=== PATIENT | male | born 1940 | race Caucasian/White ===

== ENCOUNTER 2017-11-07 09:50 | Outpatient (REF) | payer MEDICARE, OTHER, SELFPAY ==
[2017-11-07 12:31] LABS: HCT 48.3 % (40.0-50.0); HGB 16.2 g/dL (13.5-17.5); Mean Corp. HGB Concentration 33.5 g/dL (32.0-36.0); Mean Corpuscular Hemoglobin 30.5 pg (27.0-33.0); Mean Corpuscular Volume 90.8 fL (80-95); Mean Platelet Volume 12.5 fL (8.0-11.0); Platelet Count 111 x1000/uL (130-400); RBC 5.32 m/cumm (4.50-6.00); RBC Distribution Width 16.3 % (11.8-14.1)
[2017-11-07 13:07] LABS: ALT 50 U/L (12-78); AST 38 U/L (15-37); Albumin 3.8 g/dL (3.4-5.0); Alkaline Phosphatase 104 U/L (46-116); Anion Gap 7.2 mmol/L (3-11); BUN 20 mg/dL (7-18); Bilirubin, Total 0.6 mg/dL (0.2-1.0); CO2 27.8 mmol/L (21.0-32.0); CREATININE 1.12 mg/dL (0.70-1.30); Calcium 8.8 mg/dL (8.5-10.1); Chloride 108 mmol/L (98-107); Cholesterol 147 mg/dL (50-200); Glucose 99 mg/dL (70-100); HDL Cholesterol 45 mg/dL (40-60); LDL CHOLESTEROL 89 mg/dL (<100); Potassium 4.5 mmol/L (3.5-5.1); Sodium 143 mmol/L (136-145); Total Protein 6.6 g/dL (6.4-8.2); Triglyceride 76 mg/dL (30-150)
[2017-11-08 10:38] LABS: PSA, Screening 1.7 ng/ml (0-6.5)
== END 2017-11-07 10:10 ==
LOC: NCHCN 09:50
PROVIDERS: Visit Provider Family Medicine
DX: I10 Essential (primary) hypertension (principal); E78.5 Hyperlipidemia, unspecified; Z12.5 Encounter for screening for malignant neoplasm of prostate
CPT/HCPCS: 80053; 80061; 83721; 84153; 85027

== ENCOUNTER → 2019-01-19 13:25 | Outpatient (BNVA) | payer MEDICARE, OTHER, SELFPAY | PROVIDERS: PCP Family Medicine; Visit Provider Internal Medicine Cardiovascular Disease | DX: I48.20 Chronic atrial fibrillation, unspecified (principal); I10 Essential (primary) hypertension | CPT/HCPCS: 99204; 99215 ==

== ENCOUNTER 2019-06-24 11:56 | Outpatient (CLI) | payer MEDICARE, OTHER, SELFPAY ==
--- NOTE | 2019-06-24 11:00 | DI.RAD_ITS ---
EXAM: XR SHOULDER LT COMPLETE 2+V CLINICAL HISTORY: L shoulder injury TECHNIQUE: COMPARISON: No exams were available for comparison FINDINGS: Two views were obtained. There are moderate hypertrophic degenerative changes at the acromioclavicul ar joint. Mild marginal osteophyte formation humeral head and glenoid noted with mild narrowing of c artilaginous joint space of glenohumeral joint. IMPRESSION: Degenerative changes as described above. No other specific abnormality.
== END 2019-06-24 12:16 ==
PROVIDERS: PCP Family Medicine; Referring Provider Family Medicine; Visit Provider Orthopaedic Surgery
DX: M25.512 Pain in left shoulder (principal); S49.92XA Unspecified injury of left shoulder and upper arm, initial encounter; M19.012 Primary osteoarthritis, left shoulder; M75.82 Other shoulder lesions, left shoulder; I10 Essential (primary) hypertension
CPT/HCPCS: 20610; 99203; 99214; 73030; J1040

== ENCOUNTER 2019-08-12 12:14 | Outpatient (REF) | payer MEDICARE, OTHER, SELFPAY ==
[2019-08-12 22:03] LABS: HCT 45.1 % (40.0-50.0); HGB 15.3 g/dL (13.5-17.5); Mean Corp. HGB Concentration 33.9 g/dL (32.0-36.0); Mean Corpuscular Hemoglobin 29.9 pg (27.0-33.0); Mean Corpuscular Volume 88.3 fL (80-95); Mean Platelet Volume 12.8 fL (8.0-11.0); Platelet Count 101 x1000/uL (130-400); RBC 5.11 m/cumm (4.50-6.00); RBC Distribution Width 15.8 % (11.8-14.1); White Blood Cell Count 4.06 k/cumm (4.4-10.8)
[2019-08-12 22:26] LABS: Anion Gap 9.1 mmol/L (3-11); BUN 20 mg/dL (7-18); CO2 26.9 mmol/L (21.0-32.0); CREATININE 1.06 mg/dL (0.70-1.30); Calcium 9.3 mg/dL (8.5-10.1); Calculated LDL 88 mg/dL (<100); Chloride 106 mmol/L (98-107); Cholesterol 149 mg/dL (<200); Glucose 91 mg/dL (74-106); HDL Cholesterol 47 mg/dL (40-60); Potassium 4.2 mmol/L (3.5-5.1); Sodium 142 mmol/L (136-145); Triglyceride 71 mg/dL (<150)
== END 2019-08-12 12:34 ==
LOC: NCHCN 12:14
PROVIDERS: PCP Family Medicine
DX: I10 Essential (primary) hypertension (principal); I48.91 Unspecified atrial fibrillation; R42 Dizziness and giddiness; Z98.890 Other specified postprocedural states
CPT/HCPCS: 80048; 80061; 85027

== ENCOUNTER → 2020-01-22 08:50 | Outpatient (BNVA) | payer MEDICARE, OTHER, SELFPAY | PROVIDERS: PCP Family Medicine; Referring Provider Family Medicine; Visit Provider Internal Medicine Cardiovascular Disease | DX: I48.20 Chronic atrial fibrillation, unspecified (principal); I25.10 Atherosclerotic heart disease of native coronary artery without angina pectoris; I10 Essential (primary) hypertension; Z95.5 Presence of coronary angioplasty implant and graft | CPT/HCPCS: 99214 ==

== ENCOUNTER 2020-07-12 15:06 | Outpatient (REF) | payer MEDICARE, OTHER, SELFPAY ==
[2020-07-12 16:16] LABS: Bilirubin Negative (Negative); Blood Trace-lysed (Negative); Clarity Clear (Clear); Glucose Negative (Negative); Ketones Negative (Negative); Leukocyte Esterase Small (Negative); Nitrite Negative (Negative); Urobilinogen 0.2 EU/dL (Up TO 0.2)
[2020-07-12 16:18] LABS: Abs Immature Grans 0.03 10^3/uL (0.0-0.06); Absolute Basophil Count 0.01 10^3/uL (0.0-0.2); Absolute Eosinophil Count 0.07 10^3/uL (0.0-0.7); Absolute Lymphocyte Count 1.44 10^3/uL (1.2-3.4); Absolute Monocyte Count 0.71 10^3/uL (0.1-0.8); Basophils % 0.2; Eosinophils % 1.4; HCT 45.5 % (40.0-50.0); HGB 15.5 g/dL (13.5-17.5); Immature Grans % 0.6; MCH 29.2 pg (27.0-33.0); MCHC 34.1 % (32.0-36.0); MCV 85.7 fL (80-95); MPV 12.7 fL (8.0-11.0); Monocytes % 14.3; Neutrophils % 54.5; Nucleated RBC 0 %; Platelet Count 101 10^3/uL (130-400); RBC 5.31 10^6/uL (4.36-5.78); RDW 15.2 % (11.8-14.1); RDW-SD 47.9 fL; WBC 4.96 10^3/uL (4.4-10.8)
[2020-07-12 16:21] LABS: ALT 32 U/L (16-63); AST 32 U/L (15-37); Albumin 3.8 g/dL (3.4-5.0); Alkaline Phosphatase 115 U/L (46-116); Anion Gap 7.7 mmol/L (3-11); BUN 19 mg/dL (7-18); Bilirubin, Total 0.8 mg/dL (0.2-1.0); CO2 29.3 mmol/L (21.0-32.0); Calcium 9.2 mg/dL (8.5-10.1); Chloride 105 mmol/L (98-107); Glucose 97 mg/dL (74-106); Potassium 4.3 mmol/L (3.5-5.1); Sodium 142 mmol/L (136-145); Total Protein 6.6 g/dL (6.4-8.2)
[2020-07-12 16:26] LABS: Epithelial Cells Rare HPF (Negative); RBC 0-2 HPF (0-2)
[2020-07-12 16:27] LABS: Bacteria Negative HPF (Negative); C & S Indicated? Yes; Casts Negative LPF (Negative); Crystals Negative HPF (Negative); Mucus Negative (Negative); Other Cells Negative (Negative)
== END 2020-07-12 15:07 | disposition home or self-care (01) ==
LOC: NCHCN 15:06
PROVIDERS: PCP Family Medicine; Visit Provider Family Medicine
DX: R10.9 Unspecified abdominal pain (principal); R82.998 Other abnormal findings in urine
CPT/HCPCS: 80053; 81003; 81015; 85025; 87086

== ENCOUNTER 2020-07-14 01:25 | Outpatient (CLI) | payer MEDICARE, OTHER, SELFPAY ==
--- NOTE | 2020-07-14 | DI.CT_ITS ---
Exam(s) CT ABDOMEN PELVIS W EXAM: CT ABDOMEN PELVIS W CLINICAL HISTORY: ACUTE ABD PAIN, R10.9 TECHNIQUE: Imaging Protocol: Axial computed tomography images with coronal and sagittal reformatted images were created and reviewed CONTRAST MATERIAL: Intravenous: Omnipaque 350 Contrast volume:100 mL Oral: No COMPARISON: No exams were available for comparison FINDINGS: The examination is limited due to patient motion artifact. ABDOMEN: Lung Bases: There is atelectasis or scarring in the lung bases. Liver: Normal density. No measurable mass. Portal, Superior Mesenteric, and Splenic Veins: Unremarkable. Gallbladder and Biliary Tract: No radiodense calculus or dilation. Pancreas: Normal density, no abnormal calcifications or inflammatory process. Spleen: Normal. Adrenals: No masses seen. Kidneys: Normal size, contour and axis. No radiodense stones or obstructive uropathy. Bilateral simpl e renal cysts. No follow-up is recommended. Abdominal Aorta: Abdominal portion non-dilated. Marked atherosclerosis. Bowel: No obstruction or bowel wall thickening. Appendix is unremarkable. Sigmoid diverticulosis, but no evidence of acute diverticulitis. Small hiatal hernia. Peritoneal Cavity: No ascites, collection or mesenteric inflammatory response. No free air. Lymph Nodes: Unremarkable. Bones: Multilevel degenerative changes in the lumbar spine. Soft Tissues: Unremarkable. PELVIS: Bladder: Symmetric distention, no gross wall thickening. Reproductive Organs: There is an enlarged prostate gland. Lymph Nodes: Within normal limits. Bones: Degenerative changes are present. IMPRESSION: 1. No acute abdominal or pelvic process. 2. Sigmoid diverticulosis but no evidence of acute diverticulitis. 3. Moderately severe degenerative changes in the lumbar spine. 4. Bilateral simple renal cysts. No follow-up is recommended. RADIATION DOSE DELIVERED: 1,030.5mGy.cm Total DLP DATA REPOSITORY: All CT scans at this facility are submitted to the National Radiology Data Registry (NRDR) Dose Index Registry (DIR) with the [employer] (ACR). RADIATION OPTIMIZATION: All CT scans at this facility use at least one of these dose optimization te chniques: automated exposure control; mA and/or kV adjustment per patient size (includes targeted exa ms where dose is matched to clinical indication); or iterative reconstruction.
[2020-07-14] MEDS: Omnipaque 350 MG/ML 100 ML BTL IJ (15:00)
[2020-07-14] MEDS: Normal Saline - Diluent 50 ML VIAL IV (15:01)
== END 2020-07-14 01:45 ==
PROVIDERS: PCP Family Medicine; Visit Provider Family Medicine
DX: R10.9 Unspecified abdominal pain (principal); K57.30 Diverticulosis of large intestine without perforation or abscess without bleeding; N28.1 Cyst of kidney, acquired
CPT/HCPCS: 74177; J3490

== ENCOUNTER 2020-10-16 11:24 | Emergency (ER) | payer MEDICARE, OTHER, SELFPAY ==
[2020-10-16 11:32] VITALS: BP 156/76; PULSE 99; RESP 16; TEMP 36.5; O2SAT 99
--- NOTE | 2020-10-16 12:13 | W.ED.GENAD ---
Discharge Plan Disposition Patient Disposition: HOME Condition: Stable Discharge Details Clinical Impression: URI (upper respiratory infection) Primary Care Provider: Siria Garcia ED Provider: Fer Hawkins Home Meds and New Rx's Prescriptions: Continued aspirin 81 mg tablet,delayed release (DR/EC) 81 mg PO DAILY RF: 0 metoprolol succinate 50 MG tablet extended release 24 hr 75 mg PO DAILY Qty: 45 RF: 11 lisinopril 10 MG tablet 10 mg PO DAILY Qty: 30 RF: 11 atorvastatin 80 MG tablet 80 mg PO HS RF: 0 allopurinol 300 mg tablet 300 mg PO DAILY RF: 0 warfarin 5 MG tablet 5 mg PO DIRECTED RF: 0 naproxen sodium [Aleve] 220 MG tablet 1 tab PO PRN PRNRF: 0 nitroglycerin 0.4 MG tablet, sublingual 0.4 mg PO PRN PRNRF: 0 Discharge Instructions Instructions: Upper Respiratory Infection (ED) Additional Instructions: Covid swab is pending, results likely factor the next 24-72 hours. In the meantime I do recommend quarantining until the test has resulted, you will need to quarantine longer if the test is positive. In the meantime tqjw-gcf-[id number] medications as directed for symptomatic control. Please watch for new or worsening symptoms and return to the ER for any concerns. Lastly, contact your primary care provider on Saturday to discuss your ER visit need for outpatient reevaluation. Stand Alone Forms: POSITIVE COVID-19/TO BE TESTED Discharge Data Discharge Date/Time-TO BE ENTERED AT DEPARTURE: 10/16/20 12:20 Medical Decision Making 80-year-old gentleman presents with mild URI-like symptoms, has similar symptoms, her Covid test is pending. He is requesting a Covid test now. He is otherwise without concern or complaint. He appears well, nontoxic, lungs are clear to auscultation, O2 sats are 99% on room air. Extremely low suspicion for pneumonia. Posterior pharynx without erythema, edema, exudates. Extremely low suspicion for acute strep pharyngitis. Will obtain Covid swab, send out. Discussed results are typically back in the next 24-72 hours. We discussed quarantining until his results come back as his symptoms are consistent with Covid. He was encouraged to return to the ER for new or worsening symptoms otherwise he will contact his primary care provider on Saturday to discuss his ongoing symptoms and need for outpatient reevaluation. Standard discharge and return precautions provided This documentation was generated using [employer] dictation system, please disregard any oddities of phrase or misspellings. Medical Records Medical records reviewed: Yes I reviewed the patient's medical records. HPI General Mode of arrival: ambulatory. Date/Time Provider Initiated Documentation: 10/16/20 11:25. Limitations to Documentation: no limitations. Information obtained by: patient and family. HPI Narrative: This is a 80-year-old gentleman, past medical history of ASCVD, A. fib, chronic anticoagulation, hypertension, presenting to the ER requesting a Covid swab. Patient states that earlier in the week his developed URI-like symptoms, was tested for Covid but her test is still pending. He states over the past 24 hours he has noticed a slightly runny nose, scratchy throat, and a mild dry cough. He has not taken any [id number] medications for his symptoms. He denies recent travel. He is vaccinated against Covid. He denies headache, fever, chest pain, shortness of breath, productive cough, abdominal pain, nausea, vomiting, change in bowel or bladder function, skin rash. Related Data Home Medications Medication Instructions Recorded Confirmed warfarin 5 mg PO DIRECTED 02/15/15 10/16/20 naproxen sodium [Aleve] 1 tab PO PRN PRN 03/03/15 10/16/20 nitroglycerin 0.4 mg PO PRN PRN 10/09/15 10/16/20 lisinopril 10 mg PO DAILY #30 tab-cap 12/21/15 10/16/20 metoprolol succinate 75 mg PO DAILY #45 tab-cap 12/21/15 10/16/20 atorvastatin 80 mg PO HS 05/15/17 10/16/20 allopurinol 300 mg tablet 300 mg PO DAILY 01/19/19 01/22/20 aspirin 81 mg tablet,delayed 81 mg PO DAILY 01/19/19 10/16/20 release Allergies Allergy/AdvReac Type Severity Reaction Status Date / Time No Known Allergies Allergy Unverified 10/16/20 11:37 General Stated Complaint: RespSymp MARISSA: 4 Review of Systems Constitutional Constitutional: Denies fatigue, Denies fever(s) and Denies headache(s) ENT Ears, Nose, Mouth, and Throat: Denies headache(s), Denies neck pain and Reports sore throat Cardiovascular Cardiovascular: Denies chest pain and Denies dyspnea Respiratory Respiratory: Reports cough and Denies dyspnea Gastrointestinal Gastrointestinal: Denies abdominal pain, Denies nausea and Denies vomiting Genitourinary Genitourinary: Denies dysuria Musculoskeletal Musculoskeletal: Denies back pain and Denies neck pain Integumentary/Breasts Skin/Breast: Denies rash Neurologic Neurologic: Denies headache(s) Endocrine Endocrine: Denies fatigue Hematologic/Lymphatic Hematologic/Lymphatic: Reports easy bleeding and Reports easy bruising [facility] Medical History ASCVD (arteriosclerotic cardiovascular disease) Atherosclerosis of leg with intermittent claudication Chronic atrial fibrillation Colon adenoma Gout Hyperlipidemia Hypertension NSTEMI (non-ST elevated myocardial infarction) Stenosis of left carotid artery Surgical History History of heart artery stent (~08/2015) RCA stented. Social History Smoking/Tobacco Use Status: Former Tobacco Use Smoking risk assessment performed?: Yes Alcohol Intake: current Alcohol Intake frequency: 0-2 drinks per day Drug use: Never Substance use type: does not use Current gender identity: male What type of physical activity do you participate in: aerobic Duration: 30-45 minutes/day Frequency: other Details: daily aerobic exercise of either biking, cross country skiing, or treadmill Do you feel safe in your relationship?: Yes Exam Const General: cooperative, healthy appearing, comfortable and no acute distress Orientation: alert and awake [facility] Head: normal to inspection, normocephalic and atraumatic Ears: external ears normal, TM's normal bilaterally and EAC's normal General nose exam: external nose normal Face and sinus: normal facial exam Mouth: moist mucous membranes Throat: posterior oropharynx normal Eyes General: appearance normal, both eyes and all related structures Conjunctivae: conjunctivae normal Neck Neck: normal visual inspection, full ROM, no lymphadenopathy, no meningeal signs, trachea midline, supple and nontender Resp Effort & Inspection: normal respiratory effort and able to speak in complete sentences Auscultation: clear to auscultation bilaterally Cardio Rate: regular rate Rhythm: abnormal rhythm irregularly irregular GI Palpation: soft and nontender Skin General skin exam: no rashes or lesions noted Neuro General: patient alert, patient awake, moves all extremities and no focal motor deficits Sensory Exam: no sensory deficits noted Psych Appearance: grossly normal Mental Status: mental status grossly normal Course Vital Signs Vital signs: Vital Signs Temperature 36.5 C 10/16/20 11:32 Pulse 99 H 10/16/20 11:32 Respiratory Rate 16 10/16/20 11:32 Blood Pressure 156/76 H 10/16/20 11:32 Pulse Oximetry 99 10/16/20 11:32 Temperature 36.5 C 10/16/20 11:32 Temperature Source Skin 10/16/20 11:32 Pulse 99 H 10/16/20 11:32 Respiratory Rate 16 10/16/20 11:32 Respiratory Effort Non-Labored 10/16/20 11:41 Respiratory Depth Normal 10/16/20 11:41 Blood Pressure 156/76 H 10/16/20 11:32 Blood Pressure Position Sitting 10/16/20 11:32 Pulse Oximetry 99 10/16/20 11:32 Oxygen Delivery Method Room Air 10/16/20 11:32 Oxygen Flow Rate 0 10/16/20 11:32 Pain Level 0 10/16/20 11:32
[2020-10-19 15:35] LABS: COVID-19 RT-PCR UVMMC Result Negative (Negative)
== END 2020-10-16 12:20 | disposition home or self-care (01) ==
PROVIDERS: Emergency Provider Physician Assistant; PCP Family Medicine
DX: J06.9 Acute upper respiratory infection, unspecified (principal); Z20.822 Contact with and (suspected) exposure to COVID-19
CPT/HCPCS: 99281; U0003

== ENCOUNTER 2020-12-23 11:15 | Emergency (ER) | payer MEDICARE, OTHER, SELFPAY ==
[2020-12-23 11:26] VITALS: BP 132/90; PULSE 95; RESP 18; TEMP 36.7; O2SAT 98
--- NOTE | 2020-12-23 12:27 | DI.CT_ITS ---
Exam(s) CT HEAD CERVICAL SPINE WO EXAM: CT HEAD CERVICAL SPINE WO COMPARISON: CT TEMPORAL BONE WITH CONTRAST from 02/03/2017 FINDINGS: CT examination of the cervical spine was performed without contrast administration. There are moderate degenerative changes of the cervical spine. There is no evidence of acute cervical spine fracture or dislocation. Intervertebral disc spaces are well maintained. Tracheolaryngeal structures appear intact. No cervical mass or adenopathy. Noncontrast cranial CT was performed. There is moderate generalized cerebral atrophy. No evidence of acute intracranial hemorrhage, mass effect, or midline shift. No calvarial fracture. The orbital and temporal bone structures appear intact. Visualized mastoid air cells and paranasal sinuses appear clear. IMPRESSION: No evidence of acute cervical spine injury. No evidence of acute intracranial injury. RADIATION DOSE DELIVERED: 1,616.47mGy.cm Total DLP 1,616.47mGy.cm Total DLP CTDIvol DATA REPOSITORY: All CT scans at this facility are submitted to the National Radiology Data Registry (NRDR) Dose Index Registry (DIR) with the [employer] (ACR). RADIATION OPTIMIZATION: All CT scans at this facility use at least one of these dose optimization te chniques: automated exposure control; mA and/or kV adjustment per patient size (includes targeted exa ms where dose is matched to clinical indication); or iterative reconstruction.
[2020-12-23 13:30] VITALS: BP 128/97; PULSE 91; RESP 18; O2SAT 98
[2020-12-23 14:05] LABS: Abs Immature Grans 0.02 10^3/uL (0.0-0.06); Absolute Basophil Count 0.02 10^3/uL (0.0-0.2); Absolute Eosinophil Count 0.14 10^3/uL (0.0-0.7); Absolute Lymphocyte Count 1.55 10^3/uL (1.2-3.4); Absolute Monocyte Count 0.88 10^3/uL (0.1-0.8); Absolute Neutrophil Count 3.19 10^3/uL (1.2-6.7); Basophils % 0.3; Eosinophils % 2.4; HCT 42.6 % (40.0-50.0); HGB 14.2 g/dL (13.5-17.5); Immature Grans % 0.3; Lymphocytes % 26.7; MCH 29.3 pg (27.0-33.0); MCHC 33.3 % (32.0-36.0); Monocytes % 15.2; Neutrophils % 55.1; Nucleated RBC 0 %; RBC 4.84 10^6/uL (4.36-5.78); RDW 15.4 % (11.8-14.1); RDW-SD 50.3 fL
[2020-12-23 14:20] LABS: Anion Gap 3.1 mmol/L (3-11); BUN 26 mg/dL (7-18); CO2 28.9 mmol/L (21.0-32.0); CREATININE 1.1 mg/dL (0.70-1.30); Calcium 9.2 mg/dL (8.5-10.1); Chloride 108 mmol/L (98-107); Glucose 97 mg/dL (74-106); Potassium 4.9 mmol/L (3.5-5.1); Sodium 140 mmol/L (136-145)
[2020-12-23 14:30] LABS: Burr Cells (echinocyte) 2+; Diff Comment Diff Reviewed; Platelet Count 90 10^3/uL (130-400)
[2020-12-23 15:41] LABS: INR 1.9 (0.9-1.1); Prothrombin Time 18.9 sec (9.3-11.0)
--- NOTE | 2020-12-23 15:41 | ED.GENADUL_ITS ---
Discharge Plan Disposition Patient Disposition: HOME Condition: Stable Discharge Details Clinical Impression: Fall, Hand laceration, Contusion, Abrasion Primary Care Provider: Siria Garcia ED Provider: Letha Nieto Home Meds and New Rx's Prescriptions: Continued aspirin 81 mg tablet,delayed release (DR/EC) 81 mg PO DAILY RF: 0 metoprolol succinate 50 MG tablet extended release 24 hr 75 mg PO DAILY Qty: 45 RF: 11 lisinopril 10 MG tablet 10 mg PO DAILY Qty: 30 RF: 11 atorvastatin 80 MG tablet 80 mg PO HS RF: 0 allopurinol 300 mg tablet 300 mg PO DAILY RF: 0 warfarin 5 MG tablet 5 mg PO DIRECTED RF: 0 naproxen sodium [Aleve] 220 MG tablet 1 tab PO PRN PRNRF: 0 nitroglycerin 0.4 MG tablet, sublingual 0.4 mg PO PRN PRNRF: 0 Discharge Instructions Instructions: Laceration (ED), Contusion in Adults (ED), Abrasion (ED) Additional Instructions: Please return immediately to the emergency department if you develop any new or worsening symptoms, if your condition does not improve as expected, or if you become otherwise concerned. It is extremely important that you call soon as possible to make an appointment to be seen in follow-up for this visit by your primary care doctor. You will need to have your stitches removed in 10 days. Referrals: Siria Garcia [Primary Care Provider] - Discharge Data Discharge Date/Time-TO BE ENTERED AT DEPARTURE: 12/23/20 15:49 Medical Decision Making Talon Diaz is an 80 y/o man with h/o CAD, HLD, HTN atrial fibrillation on coumadin who presented to the emergency department with left palmar laceration with continued slow bleeding after fall down 5-6 steps 1.5 hours ago. On exam Pt with superficial abrasion to right eyebrow, mild echymoses right lateral midshaft thigh with full painless ROM right knee and hip, 1.5 cm gill laceration with slow oozing, 0.5cm left palmar laceration bleeding controlled. Exam/hx not c/w hip fx, femur fx, other major trauma to the extremities, thorax/abdomen/spine/head, non-mechanical etiology of fall. Plan for laceration repair, screening labs given coumadin. Lacerations repaired, no further bleeding. Pt stated several times that he wished to be discharged and did not want to wait for labs results. Verbal report from lab, INR 1.9, other labs not resulted. I had a lengthy discussion with Patient regarding labs not yet resulted, Pt would need outpt f/u with PCP regarding lab values, possible life-threatening diagnosis could be missed if Pt elects to leave before all labs resulted. Pt agrees to outpt f/u for lab results, continues to wish to be discharged to home prior to results. I also discussed with Pt return to emergency department precautions, home care, and importance of outpatient follow-up. Pt verbalizes understanding of the plan and is amenable. Patient discharged to home with clear plan for outpatient follow-up. All questions were answered. Disposition decision was made weighing the risks and benefits of hospitalization versus outpatient treatment, the risk for further decompensation, and the patient's wishes. Medical Records Medical records reviewed: Yes I reviewed the patient's medical records. Lab Data Lab results reviewed: Yes I reviewed the patient's lab results. Labs: Laboratory Tests Range/Units 12/23/20 12/23/20 12/23/20 13:55 13:55 13:55 WBC (4.4-10.8) 10^3/uL 5.80 RBC (4.36-5.78) 10^6/uL 4.84 Hgb (13.5-17.5) g/dL 14.2 Hct (40.0-50.0) % 42.6 MCV (80-95) fL 88.0 MCH (27.0-33.0) pg 29.3 MCHC (32.0-36.0) % 33.3 RDW (11.8-14.1) % 15.4 H Plt Count (130-400) 10^3/uL 90 L MPV (8.0-11.0) fL Immature Gran % 0.3 Neutrophils % 55.1 Lymphocytes % 26.7 Monocytes % 15.2 Eosinophils % 2.4 Basophils % 0.3 Nucleated RBC % % 0 Absolute Neutrophils (1.2-6.7) 10^3/uL 3.19 Absolute Lymphocytes (1.2-3.4) 10^3/uL 1.55 Absolute Monocytes (0.1-0.8) 10^3/uL 0.88 H Absolute Eosinophils (0.0-0.7) 10^3/uL 0.14 Absolute Basophils (0.0-0.2) 10^3/uL 0.02 RBC Morphology See Below Yemi Cells/Echinocytes 2+ PT (9.3-11.0) sec 18.9 H INR (0.9-1.1) 1.9 H Sodium (136-145) mmol/L 140 Potassium (3.5-5.1) mmol/L 4.9 Chloride (98-107) mmol/L 108 H Carbon Dioxide (21.0-32.0) mmol/L 28.9 Anion Gap (3-11) mmol/L 3.1 BUN (7-18) mg/dL 26 H Creatinine (0.70-1.30) mg/dL 1.1 Estimated GFR/1.73 m2 (mL/min/1.73m2) >= 60.00 Glucose (74-106) mg/dL 97 Calcium (8.5-10.1) mg/dL 9.2 HPI General Mode of arrival: ambulatory . Date/Time Provider Initiated Documentation: 12/23/20 11:33 . Limitations to Documentation: no limitations . Information obtained by: patient and RN notes reviewed . HPI Narrative: Talon Diaz is an 80 y/o man with h/o CAD, HLD, HTN atrial fibrillation on coumadin presenting to the emergency department with chief complaint hand laceration. Pt reports that he was carrying a large box down the stairs when he lost his balance and fell down 5 or 6 steps. Pt reports that he hit his forehead on railing, and also hit his left hand and right thigh. Reports cut to left hand and reports scrape to right eyebrow. Denies LOC, states that he remembers event in it's entirety. No vomiting. Pt reports that he had no preceding symptoms, fall was mechanical due to loss of balance. He denies pain other than to his left hand at site of laceration and mild pain to right thigh. Denies headache or facial pain. Denies SOB, cough, palpitations, lightheadedness, numbness, weakness, diarrhea, rash, swelling. Previously in his usual state of health. Pt states that he presented to ED because cut on left hand has continued to ooze despite pressure. Denies other bleeding. Pt reports that he feels overall well and ready to go home other than oozing from hand wound. Related Data Home Medications Medication Instructions Recorded Confirmed warfarin 5 mg PO DIRECTED 02/15/15 12/23/20 naproxen sodium [Aleve] 1 tab PO PRN PRN 03/03/15 12/23/20 nitroglycerin 0.4 mg PO PRN PRN 10/09/15 12/23/20 lisinopril 10 mg PO DAILY #30 tab-cap 12/21/15 12/23/20 metoprolol succinate 75 mg PO DAILY #45 tab-cap 12/21/15 12/23/20 atorvastatin 80 mg PO HS 05/15/17 12/23/20 allopurinol 300 mg tablet 300 mg PO DAILY 01/19/19 12/23/20 aspirin 81 mg tablet,delayed 81 mg PO DAILY 01/19/19 12/23/20 release Allergies Allergy/AdvReac Type Severity Reaction Status Date / Time No Known Allergies Allergy Unverified 12/23/20 11:32 General Stated Complaint: Trauma MARISSA: 2 Review of Systems Narrative: Constitutional: denies fevers Eyes: denies eye pain, vision changes ENT: denies ear pain, dental pain, sore throat, facial pain Cardiovascular: denies chest pain Respiratory: denies SOB, cough GI: denies abdominal pain, vomiting, diarrhea : denies flank pain MSK: denies back pain, neck pain, arthralgias, reports right thigh myalgia Skin: denies rash, reports hand wound, abrasion to forehead Neuro: denies headaches, numbness, weakness, LOC PFSH Active Problem List (Updated 12/23/20 @ 15:43 by Letha Nieto MD) URI (upper respiratory infection) (Acute) Fall (Acute) Hand laceration (Acute) Contusion (Acute) Abrasion (Acute) Tendonitis of left rotator cuff (Acute) Chronic atrial fibrillation (Acute) Hypertension (Chronic) Speech abnormality (Acute) Medical History (Updated 12/23/20 @ 15:43 by Letha Nieto MD) ASCVD (arteriosclerotic cardiovascular disease) 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 Social History Smoking/Tobacco Use Status: Former Tobacco Use Smoking risk assessment performed?: Yes Alcohol Intake: current Alcohol Intake frequency: 0-2 drinks per day Drug use: Never Substance use type: does not use Current gender identity: male What type of physical activity do you participate in: aerobic Duration: 30-45 minutes/day Frequency: other Details: daily aerobic exercise of either biking, cross country skiing, or treadmill Do you feel safe in your relationship?: Yes Exam Narrative Exam Narrative: Constitutional: well and [id number]-[id number], pleasant, conversing normally HENT: foreahead with abrasion to right eyebrow, no bleeding, head/scalp otherwise atraumatic/normocephalic/normal inspection, mucous membranes moist, no intra-oral lesion Eyes: conjunctiva normal, sclera normal, pupils 3mm b/l Neck: no stridor, normal painless ROM, trachea midline, no cervical spine TTP Chest: normal inspection Resp: normal work of breathing, LCTAB Cardio: normal rate, normal rhythm, no murmur appreciated GI: abdomen soft, non-tender, non-distended Back: normal inspection, no rash Skin: warm, dry, normal color, no rash Neuro: alert, not altered, grossly non-focal, normal tone Ext: right lateral thigh with mild ecchymoses at midpoint, FROM right hip, no TTP right hip or knee, no anterior TTP of the right thigh, no deformity, DP pulses intact and symmetric, left palm with 1.5 cm laceration (oozing) and 0.5 cm laceration (no active bleeding) Psych: normal mood, normal affect, normal behavior Course Vital Signs Vital signs: Vital Signs Temperature 36.7 C 12/23/20 11:26 Pulse 95 H 12/23/20 11:26 Respiratory Rate 18 12/23/20 11:26 Blood Pressure 132/90 12/23/20 11:26 Pulse Oximetry 98 12/23/20 11:26 Temperature 36.7 C 12/23/20 11:26 Temperature Source Skin 12/23/20 11:26 Pulse 91 H 12/23/20 13:30 Respiratory Rate 18 12/23/20 13:30 Respiratory Effort 12/23/20 11:34 Respiratory Depth Normal 12/23/20 11:34 Respiratory Pattern Normal 12/23/20 11:34 Blood Pressure 128/97 H 12/23/20 13:30 Blood Pressure Position Sitting 12/23/20 11:26 Pulse Oximetry 98 12/23/20 13:30 Oxygen Delivery Method Room Air 12/23/20 13:30 Oxygen Flow Rate 0 12/23/20 13:30 Pain Level 2 12/23/20 11:26 Lab/Test Results Lab/Test Results: Laboratory Tests Range/Units 12/23/20 12/23/20 12/23/20 13:55 13:55 13:55 WBC (4.4-10.8) 10^3/uL 5.80 RBC (4.36-5.78) 10^6/uL 4.84 Hgb (13.5-17.5) g/dL 14.2 Hct (40.0-50.0) % 42.6 MCV (80-95) fL 88.0 MCH (27.0-33.0) pg 29.3 MCHC (32.0-36.0) % 33.3 RDW (11.8-14.1) % 15.4 H Plt Count (130-400) 10^3/uL 90 L MPV (8.0-11.0) fL Immature Gran % 0.3 Neutrophils % 55.1 Lymphocytes % 26.7 Monocytes % 15.2 Eosinophils % 2.4 Basophils % 0.3 Nucleated RBC % % 0 Absolute Neutrophils (1.2-6.7) 10^3/uL 3.19 Absolute Lymphocytes (1.2-3.4) 10^3/uL 1.55 Absolute Monocytes (0.1-0.8) 10^3/uL 0.88 H Absolute Eosinophils (0.0-0.7) 10^3/uL 0.14 Absolute Basophils (0.0-0.2) 10^3/uL 0.02 RBC Morphology See Below Yemi Cells/Echinocytes 2+ PT (9.3-11.0) sec 18.9 H INR (0.9-1.1) 1.9 H Sodium (136-145) mmol/L 140 Potassium (3.5-5.1) mmol/L 4.9 Chloride (98-107) mmol/L 108 H Carbon Dioxide (21.0-32.0) mmol/L 28.9 Anion Gap (3-11) mmol/L 3.1 BUN (7-18) mg/dL 26 H Creatinine (0.70-1.30) mg/dL 1.1 Estimated GFR/1.73 m2 (mL/min/1.73m2) >= 60.00 Glucose (74-106) mg/dL 97 Calcium (8.5-10.1) mg/dL 9.2 Procedures Laceration Laceration 1: Site: hand Side (If applicable): left Size (cm): 1.5 Description: linear Depth: simple, single layer Local Anesthetic: Lidocaine 1% Amount of anesthesia used (mL): 4 Pre-repair: wound explored, irrigated extensively and deep structures intact Skin layer closed with: nylon Size (cm): 4-0 Technique: simple, interrupted PAWSS Have you Been Recently Intoxicated or Drunk Within the Last 30 days?: No Have you Ever Experienced Previous Episodes of Alcohol Withdrawal?: No Have you ever Experienced Withdrawal Seizures?: No Have you ever Experienced Delirium Tremens(DT)s?: No Have you ever undergone Alcohol Rehabilitation Treatment (i.e, inpt ot outpatient treatment programs)?: No Have you ever Experienced Blackouts?: No Have you ever Combined Alcohol with other Downers within the last 90 days?: No Have you ever Combined Alcohol with any other Substance of Abuse during the last 90 days?: No Positive Blood Alcohol level on Presentation? [PCS.BAL]: No Evidence of Increased Autonomic Activity (i.e. HR>120, tremor, sweating, agitation, nausea)?: No Result: 0
== END 2020-12-23 15:49 | disposition home or self-care (01) ==
PROVIDERS: Emergency Provider Student in an Organized Health Care Education/Training Program; PCP Family Medicine
DX: S61.412A Laceration without foreign body of left hand, initial encounter (principal); S70.11XA Contusion of right thigh, initial encounter; S00.211A Abrasion of right eyelid and periocular area, initial encounter; W10.8XXA Fall (on) (from) other stairs and steps, initial encounter; Z79.01 Long term (current) use of anticoagulants
CPT/HCPCS: 12001; 80048; 90471; 99284; 70450; 72125; 85025; 85610; 99283

== ENCOUNTER 2021-01-06 10:32 | Outpatient (REF) | payer MEDICARE, OTHER, SELFPAY ==
[2021-01-06 15:25] LABS: Calculated LDL 75 mg/dL (<100); Cholesterol 135 mg/dL (<200); HDL Cholesterol 50 mg/dL (40-60); Triglyceride 53 mg/dL (<150)
== END 2021-01-06 10:33 | disposition home or self-care (01) ==
LOC: NCHCN 10:32
PROVIDERS: PCP Family Medicine; Visit Provider Family Medicine
DX: E78.5 Hyperlipidemia, unspecified (principal)
CPT/HCPCS: 80061

== ENCOUNTER 2021-01-26 07:57 | Inpatient (IN) | payer MEDICARE, OTHER, SELFPAY ==
[2021-01-26] VITALS (26 sets, daily range): BP systolic 71–172; BP diastolic 41–104; PULSE 67–95; RESP 13–25; TEMP 35.4–36.9; O2SAT 95–100
--- NOTE | 2021-01-26 08:00 | DI.RAD_ITS ---
Exam(s) XR RIBS LT W PA LAT CHEST EXAM: XR RIBS LT W PA LAT CHEST CLINICAL HISTORY: R/O Fracture. TECHNIQUE: 2D digital imaging was performed. COMPARISON: CR PORTABLE CHEST ONE VIEW from 08/30/2015 FINDINGS: Left rib cage: No obvious fractures. No osseous lesions. Chest x-ray: Heart size normal mediastinum is not widened. Lungs are clear. No infiltrates nor pleu ral effusions. No pneumothorax IMPRESSION: No acute pulmonary findings No left rib fracture seen DATA REPOSITORY: RADIATION DOSE DELIVERED:
--- NOTE | 2021-01-26 08:00 | DI.CT_ITS ---
Exam(s) CT HEAD WO EXAM: CT HEAD WO CLINICAL HISTORY: Fall, Head Injury R/O Bleed. TECHNIQUE: Imaging Protocol: Axial computed tomography images with coronal and sagittal reformatted images were created and reviewed COMPARISON: CT CT HEAD CERVICAL SPINE WO from 12/23/2020 FINDINGS: There are no skull fractures. There is complete opacification of the right maxillary sinus, not ass ociated with obvious fracture. Mild mucosal thickening noted in left maxillary sinus. Sphenoid sinu ses and frontal sinuses are clear, as are the ethmoidal air cells and mastoid air cells. There is no evidence of intracranial hemorrhage, mass effect, or shift of midline structures. There are no extra-axial fluid collections. The ventricles are not enlarged or shifted and there is no blo od within the ventricular system nor within the basal cisterns. IMPRESSION: No acute intracranial findings on this noninfused CT scan of the brain. However, there is complete opacification of the right maxillary sinus some mucosal thickening also no dawn left maxillary, these findings not evident on the prior CT exam of 12/23/2020. The amount of sof t tissue swelling over the right orbit has decreased from the prior study. RADIATION DOSE DELIVERED: 931.26mGy.cm Total DLP DATA REPOSITORY: All CT scans at this facility are submitted to the National Radiology Data Registry (NRDR) Dose Index Registry (DIR) with the [employer] (ACR). RADIATION OPTIMIZATION: All CT scans at this facility use at least one of these dose optimization te chniques: automated exposure control; mA and/or kV adjustment per patient size (includes targeted exa ms where dose is matched to clinical indication); or iterative reconstruction.
--- NOTE | 2021-01-26 08:10 | ED.GENADUL_ITS ---
Discharge Plan Disposition Patient Disposition: [facility] INPATIENT Condition: Stable Discharge Details Clinical Impression: Fall, Multiple fractures of ribs of left side Admit Date/Time: 01/26/21 12:35 Admit Provider: Jenn Castle Attending Provider: Jenn Castle Primary Care Provider: Siria Garcia ED Provider: Eva Clark Medical Decision Making 80-year-old male presents to the ER via EMS status post slip and fall in his driveway this morning. Patient reports that he was talking on the phone when he had a mechanical fall. He denies any loss of consciousness. He did hit the back of his left occipital scalp which has a skin tear. He also is complaining of some left-sided posterior upper rib pain. Pain is only present when he moves. Bleeding is controlled upon arrival. He does take warfarin he did take his normal daily a.m. medications. He denies any other signs or symptoms no chest pain no abdominal pain. No other signs of trauma. He is alert and oriented x4 XR RIBS LT W PA LAT CHEST EXAM: XR RIBS LT W PA LAT CHEST FINDINGS: Left rib cage: No obvious fractures. No osseous lesions. Chest x-ray: Heart size normal mediastinum is not widened. Lungs are clear. No infiltrates nor pleural effusions. No pneumothorax IMPRESSION: No acute pulmonary findings No left rib fracture seen EXAM: CT HEAD WO FINDINGS: There are no skull fractures. There is complete opacification of the right maxillary sinus, not associated with obvious fracture. Mild mucosal thickening noted in left maxillary sinus. Sphenoid sinuses and frontal sinuses are clear, as are the ethmoidal air cells and mastoid air cells. There is no evidence of intracranial hemorrhage, mass effect, or shift of midline structures. There are no extra-axial fluid collections. The ventricles are not enlarged or shifted and there is no blood within the ventricular system nor within the basal cisterns. IMPRESSION: No acute intracranial findings on this noninfused CT scan of the brain. However, there is complete opacification of the right maxillary sinus some mucosal thickening also noted left maxillary, these findings not evident on the prior CT exam of 12/23/2020. The amount of soft tissue swelling over the right orbit has decreased from the prior study. Attempted with discharge attempted to get patient up into the wheelchair. Patient had severe increase in left-sided chest pain to the point where he felt dizzy. Pain is only upon movement and with palpation to his left midclavicular line with palpation. CT chest ordered to rule out occult fracture or any int ernal abnormality. Oxycodone 5 mg p.o. ordered. FINDINGS: CHEST: LUNGS: No pulmonary contusion nor pleural effusion or pneumothorax. However, there are multiple acute appearing nondisplaced left-sided rib fractures involving the left to 5th, 6, 7th, 8th, 9th ribs, without evidence of ipsilateral scapular fracture. There is very mild pleural thickening over the area of fractures in the left lower lobe. No large pleural effusion. There are no rib fractures on the opposite-right side. No sternal fracture evident. No obvious acute clavicle fracture in the field of view obtained. Incidentally noted is an azygos accessory lobe on the opposite-right side-right lung. There are no vertebral fractures evident. MEDIASTINUM: No evidence of mediastinal hematoma. No incidental hilar nor me diastinal adenopathy. Visualized thyroid unremarkable.No obvious axillary adenopathy CARDIAC: Heart size is normal. There is no pericardial effusion.Caliber of the thoracic aorta is within normal limits. VISUALIZED UPPER ABDOMEN:No acute findings. OSSEOUS: As above. IMPRESSION: 1. There are nondisplaced fractures of the left 5th through 9th ribs, inclusive. There is some mild pleural thickening over this region but no prominent lung contusion or large pleural effusion and there is no pneumothorax. 2. No evidence of overlying ipsilateral left scapular fracture and no vertebral body fractures evident. No fractures in the opposite-right rib cage. 3. No mediastinal hematoma nor incidental intrathoracic adenopathy. 1140: Patient reevaluation and discussion of CT results. Incentive spirometer ordered. Attempted to get patient up into the wheelchair. Patient is complaining of 8-10 of pain with movement. Additional oxycodone 5 mg ordered p.o. I did contact the OR to inquire if they could do a rib block for the patient. Will consider admission if there is a contraindication to the rib block or if anesthesia is not available for pain control and observation. Spoke with [employer] DIRECTOR to request Rib block. 1211: Spoke with Dr. Castle regarding patient she recommends labs including a PT PTT and INR. She does agree to accept patient for admission she will call anesthesia and call me back patient may not be a candidate for a rib block due to being on Coumadin. Patient admitted to floor for trauma and observation. HPI General Mode of arrival: EMS . Date/Time Provider Initiated Documentation: 01/26/21 08:01 . Limitations to Documentation: no limitations . Information obtained by: patient, EMS and RN notes reviewed . HPI Narrative: 80-year-old male presents to the ER via EMS status post slip and fall in his driveway this morning. Patient reports that he was talking on the phone when he had a mechanical fall. He denies any loss of consciousness. He did hit the back of his left occipital scalp which has a skin tear. He also is complaining of some left-sided posterior upper rib pain. Pain is only present when he moves. Bleeding is controlled upon arrival. He does take warfarin he did take his normal daily a.m. medications. He denies any other signs or symptoms no chest pain no abdominal pain. No other signs of trauma. He is alert and oriented x4. Related Data Home Medications Medication Instructions Recorded Confirmed warfarin 5 mg PO DIRECTED 02/15/15 01/26/21 naproxen sodium [Aleve] 1 tab PO PRN PRN 03/03/15 01/26/21 nitroglycerin 0.4 mg PO PRN PRN 10/09/15 01/26/21 lisinopril 10 mg PO DAILY #30 tab-cap 12/21/15 01/26/21 metoprolol succinate 75 mg PO DAILY #45 tab-cap 12/21/15 01/26/21 atorvastatin 80 mg PO HS 05/15/17 01/26/21 allopurinol 300 mg tablet 300 mg PO DAILY 01/19/19 01/26/21 aspirin 81 mg tablet,delayed 81 mg PO DAILY 01/19/19 01/26/21 release fluticasone propionate [24 Hour 2 spray INTRANASAL DAILY 7 Days 01/26/21 Allergy Relief] #16 g Previous Rx's Medication Instructions Recorded fluticasone propionate [24 Hour 2 spray INTRANASAL DAILY 7 Days 01/26/21 Allergy Relief] #16 g Allergies Allergy/AdvReac Type Severity Reaction Status Date / Time No Known Allergies Allergy Unverified 01/26/21 08:10 General Stated Complaint: Trauma MARISSA: 3 Review of Systems All systems reviewed & are unremarkable except as noted in HPI and below Constitutional Constitutional: Reports frequent falls Musculoskeletal Musculoskeletal: Reports as per HPI and Reports back pain Integumentary/Breasts Skin/Breast: Reports wounds Neurologic Neurologic: Reports frequent falls PFSH All Active Problems (Updated 01/26/21 @ 14:10 by Jenn Castle DO) Anticoagulated on Coumadin (Acute) NSTEMI (non-ST elevated myocardial infarction) (Acute) Stenosis of left carotid artery (Acute) Hyperlipidemia (Acute) ASCVD (arteriosclerotic cardiovascular disease) (Acute) 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 Social History Smoking/Tobacco Use Status: Former Tobacco Use Smoking risk assessment performed?: Yes Alcohol Intake: current Alcohol Intake frequency: 0-2 drinks per day Alcohol type: hard liquor Drug use: Never Substance use type: does not use Current gender identity: male What type of physical activity do you participate in: aerobic Duration: 30-45 minutes/day Frequency: other Details: daily aerobic exercise of either biking, cross country skiing, or treadmill Do you feel safe at home: Yes Do you feel safe in your relationship?: Yes Exam Narrative Exam Narrative: General: Well Developed, Awake and Alert, conversant. Skin: Warm and Dry HEENT: Head: No palpable deformities, Normocephalic. Left posterior occipital scalp skin tear noted. Bleeding is controlled at this time. Eyes: Pupils PERRLA, EOM's intact. No periorbital eccymosis or step off Ears: Canal patent. Tympanic membranes are clear . No wisdom's sign, no hemptympanum. Nose/Face: Old healing bruise noted to his right periorbital anterior bone over the zygomatic process. He reports that he fell down some stairs in December which she was seen for at that time.. Facial bones nontender to palpation and s table with manipulation. Mouth/Throat: No intraoral trauma. Teeth and mandible are intact. Neck: No midline tenderness, no step off, no deformity to palpation of C-spine. Trachea midline. Chest: No surface trauma. Posterior left upper tenderness with strong palpation. Increased pain with movement. Lungs clear to ausculatation bilaterally. Heart: RRR, no rubs, murmurs or gallop. Abdomen: No abrasions, ecchymosis, or surface trauma. Nondistended. Nontender to palpation no guarding, rebound, or rigidity. Pelvis: Nontender to palpation and stable to compression. Femoral pulses strong and equal Extremities: no surface trauma. Sensation intact. Peripheral pulses intact and equal. Neuro: ANO x4, GCS 15, cranial nerves II through XII intact. Motor and sensory exam nonfocal. Reflexes are symmetric. Course Vital Signs Vital signs: Vital Signs Temperature 36.3 C L 01/26/21 08:02 Pulse 78 01/26/21 08:02 Respiratory Rate 18 01/26/21 08:02 Blood Pressure 172/104 H 01/26/21 08:02 Pulse Oximetry 96 01/26/21 08:02 Temperature 36.3 C L 01/26/21 08:02 Temperature Source Oral 01/26/21 08:02 Pulse 78 01/26/21 08:02 Respiratory Rate 18 01/26/21 08:02 Respiratory Effort Non-Labored 01/26/21 08:08 Blood Pressure 172/104 H 01/26/21 08:02 Blood Pressure Position Supine 01/26/21 08:02 Pulse Oximetry 96 01/26/21 08:02 Oxygen Delivery Method Room Air 01/26/21 08:02 Oxygen Flow Rate 0 01/26/21 08:02 Pain Level 9 01/26/21 08:02 PAWSS Have you Been Recently Intoxicated or Drunk Within the Last 30 days?: No Have you Ever Experienced Previous Episodes of Alcohol Withdrawal?: No Have you ever Experienced Withdrawal Seizures?: No Have you ever Experienced Delirium Tremens(DT)s?: No Have you ever undergone Alcohol Rehabilitation Treatment (i.e, inpt ot outpatient treatment programs)?: No Have you ever Experienced Blackouts?: No Have you ever Combined Alcohol with other Downers within the last 90 days?: No Have you ever Combined Alcohol with any other Substance of Abuse during the last 90 days?: No Positive Blood Alcohol level on Presentation? [PCS.BAL]: No Evidence of Increased Autonomic Activity (i.e. HR>120, tremor, sweating, agitation, nausea)?: No Result: 0
[2021-01-26] MEDS: Lidocaine 5% Patch 1 PATCH TP (08:19)
[2021-01-26] MEDS: oxyCODONE 5 MG TAB PO ×2 (10:03→12:41)
--- NOTE | 2021-01-26 10:22 | DI.CT_ITS ---
Exam(s) CT CHEST WO EXAM: CT CHEST WO CLINICAL HISTORY: Left side chest pain s/p Fall. TECHNIQUE: Multi planar reconstructions were performed. CONTRAST MATERIAL: None COMPARISON: CT CT ABDOMEN PELVIS W from 07/14/[address] ABDOMEN PELVIS W from 07/14/2020 FINDINGS: CHEST: LUNGS: No pulmonary contusion nor pleural effusion or pneumothorax. However, there are multiple acut e appearing nondisplaced left-sided rib fractures involving the left to 5th, 6, 7th, 8th, 9th ribs, w ithout evidence of ipsilateral scapular fracture. There is very mild pleural thickening over the are a of fractures in the left lower lobe. No large pleural effusion. There are no rib fractures on the opposite-right side. No sternal fracture evident. No obvious acute clavicle fracture in the field of view obtained. Incidentally noted is an azygos accessory lobe on the opposite-right side-right lexy ng. There are no vertebral fractures evident. MEDIASTINUM: No evidence of mediastinal hematoma. No incidental hilar nor mediastinal adenopathy. V isualized thyroid unremarkable.No obvious axillary adenopathy CARDIAC: Heart size is normal. There is no pericardial effusion.Caliber of the thoracic aorta is wit hin normal limits. VISUALIZED UPPER ABDOMEN:No acute findings. OSSEOUS: As above. IMPRESSION: 1. There are nondisplaced fractures of the left 5th through 9th ribs, inclusive. There is some mild pleural thickening over this region but no prominent lung contusion or large pleural effusion and the re is no pneumothorax. 2. No evidence of overlying ipsilateral left scapular fracture and no vertebral body fractures eviden t. No fractures in the opposite-right rib cage. 3. No mediastinal hematoma nor incidental intrathoracic adenopathy. RADIATION DOSE DELIVERED: 624.43mGy.cm Total DLP DATA REPOSITORY: All CT scans at this facility are submitted to the National Radiology Data Registry (NRDR) Dose Index Registry (DIR) with the [employer] (ACR). RADIATION OPTIMIZATION: All CT scans at this facility use at least one of these dose optimization te chniques: automated exposure control; mA and/or kV adjustment per patient size (includes targeted exa ms where dose is matched to clinical indication); or iterative reconstruction.
[2021-01-26 12:46] LABS: Abs Immature Grans 0.07 10^3/uL (0.0-0.06); Absolute Basophil Count 0.01 10^3/uL (0.0-0.2); Absolute Eosinophil Count 0.01 10^3/uL (0.0-0.7); Absolute Lymphocyte Count 0.98 10^3/uL (1.2-3.4); Absolute Monocyte Count 0.99 10^3/uL (0.1-0.8); Absolute Neutrophil Count 6.04 10^3/uL (1.2-6.7); Basophils % 0.1; Eosinophils % 0.1; HGB 14.4 g/dL (13.5-17.5); Immature Grans % 0.9; Lymphocytes % 12.1; MCH 29.2 pg (27.0-33.0); MCHC 32.7 % (32.0-36.0); MCV 89.2 fL (80-95); MPV 12.3 fL (8.0-11.0); Monocytes % 12.2; Neutrophils % 74.6; Nucleated RBC 0 %; Platelet Count 104 10^3/uL (130-400); RBC 4.93 10^6/uL (4.36-5.78); RDW 15.6 % (11.8-14.1); RDW-SD 51.2 fL
[2021-01-26 12:52] LABS: Source Nasal/Nares
[2021-01-26 12:59] LABS: INR 1.9 (0.9-1.1); PTT Activated 25.6 sec (21.0-27.5); Prothrombin Time 18.5 sec (9.3-11.0)
[2021-01-26 13:00] LABS: ALT 38 U/L (16-63); AST 31 U/L (15-37); Albumin 3.7 g/dL (3.4-5.0); Alkaline Phosphatase 95 U/L (46-116); Anion Gap 7.5 mmol/L (3-11); BUN 27 mg/dL (7-18); Bilirubin, Total 0.8 mg/dL (0.2-1.0); CO2 27.5 mmol/L (21.0-32.0); Calcium 8.8 mg/dL (8.5-10.1); Chloride 106 mmol/L (98-107); Glucose 128 mg/dL (74-106); Magnesium 1.9 mg/dL (1.8-2.4); Potassium 4.3 mmol/L (3.5-5.1); Sodium 141 mmol/L (136-145); Total Protein 6.7 g/dL (6.4-8.2); Troponin I < 50 ng/L (<or=60)
--- NOTE | 2021-01-26 13:05 | NUR.NOTE ---
Nursing Note: Bill [phone] son
[2021-01-26 13:32] LABS: COVID-19 PCR Negative (Negative)
--- NOTE | 2021-01-26 13:56 | W.PM.HP.N ---
Date of service: 01/26/21 Time of Service: 13:57 Assessment and Plan Assessment and plan (1) Fall: Status: Acute Assessment and plan: Does not appear to be related to a heart attack or stroke. -Neurochecks for 24 hours and telemetry for 24 hours -Hold Coumadin. Patient was not at therapeutic dose. Unclear as to who is following his Coumadin long-term. From looking at his numbers he has not been in a therapeutic range (2) Abrasion: Status: Acute Assessment and plan: Antibiotic ointment and dressing (3) Multiple fractures of ribs of left side: Status: Acute Assessment and plan: Pulmonary toilet We will have anesthesia come and do rib blocks Pain management plan see orders Repeat chest x-ray in a.m. We will have physical therapy see him up walking (4) Chronic atrial fibrillation: Status: Acute (5) Hypertension: Status: Chronic (6) Stenosis of left carotid artery: Status: Acute (7) Hyperlipidemia: Status: Acute (8) ASCVD (arteriosclerotic cardiovascular disease): Status: Acute (9) Atherosclerosis of leg with intermittent claudication: Status: Acute (10) Colon adenoma: Status: Acute (11) Gout: Status: Acute (12) Anticoagulated on Coumadin: Status: Acute History of Present Illness Consults Consult date: 01/26/21 Narrative: Patient slipped and fell on the ice this morning. His son brought him to the ER. He did hit his head. He denies any loss of consciousness. He does not have any double vision or blurry vision. He has no numbness or tingling in his hands or his feet. He has no nausea. He has no memory changes. He has a slight headache. He has intense pain in his left chest with coughing. He is not coughing up any blood. He has no pain or difficulty swallowing. He had an HI in 2016 and completed cardiac rehab. He does have a routine follow-up appointment with cardiology at 11 AM tomorrow He does not get chest pain or shortness of breath with walking around the block. He is on Coumadin. He has A. fib and has had several TIAs and has carotid artery stenosis. His last ultrasound was 2015 and showed a 60% stenosis of the left internal carotid. He should have these repeated again. He is on a statin. He denies passing out or having chest pain before the fall. He currently is ANO x3. He has pain when taking a deep breath in the left chest Review of Systems All systems reviewed & are unremarkable except as noted in HPI and below PFSH All Active Problems (Updated 01/26/21 @ 14:10 by Jenn Castle DO) Anticoagulated on Coumadin (Acute) NSTEMI (non-ST elevated myocardial infarction) (Acute) Stenosis of left carotid artery (Acute) Hyperlipidemia (Acute) ASCVD (arteriosclerotic cardiovascular disease) (Acute) 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 Social History Smoking/Tobacco Use Status: Former Tobacco Use Smoking risk assessment performed?: Yes Alcohol Intake: current Alcohol Intake frequency: 0-2 drinks per day Alcohol type: hard liquor Drug use: Never Substance use type: does not use Current gender identity: male What type of physical activity do you participate in: aerobic Duration: 30-45 minutes/day Frequency: other Details: daily aerobic exercise of either biking, cross country skiing, or treadmill Do you feel safe at home: Yes Do you feel safe in your relationship?: Yes Meds Allergies and Home Medications Allergies Allergy/AdvReac Type Severity Reaction Status Date / Time No Known Allergies Allergy Unverified 01/26/21 08:10 Home Medications Medication Instructions Recorded Confirmed Type warfarin 5 mg PO DIRECTED 02/15/15 01/26/21 History naproxen sodium [Aleve] 1 tab PO PRN PRN 03/03/15 01/26/21 History nitroglycerin 0.4 mg PO PRN PRN 10/09/15 01/26/21 History lisinopril 10 mg PO DAILY #30 tab-cap 12/21/15 01/26/21 History metoprolol succinate 75 mg PO DAILY #45 tab-cap 12/21/15 01/26/21 History atorvastatin 80 mg PO HS 05/15/17 01/26/21 History allopurinol 300 mg tablet 300 mg PO DAILY 01/19/19 01/26/21 History aspirin 81 mg tablet,delayed 81 mg PO DAILY 01/19/19 01/26/21 History release fluticasone propionate [24 Hour 2 spray INTRANASAL DAILY 7 Days 01/26/21 Rx Allergy Relief] #16 g Exam Const General: cooperative, healthy appearing, comfortable, no acute distress, well developed and well groomed Nutritional Appearance: average body habitus and well nourished Orientation: alert, awake and oriented x3 HENMT Head: other (3 inch area of contusion and ecchymosis on the left temporal parietal regio) Ears: hearing grossly normal bilaterally and external ears normal General nose exam: external nose normal Face and sinus: normal facial exam and sinuses nontender Mouth: oral mucosae normal, lip normal, tongue normal and moist mucous membranes Teeth and gingiva: dentition normal Eyes General: appearance normal, both eyes and all related structures Conjunctivae: conjunctivae normal Sclera: sclerae normal Pupils: PERRL Neck Neck: normal visual inspection and full ROM Chest Chest: tenderness rib (mid on left) Resp Effort & Inspection: normal respiratory effort, able to speak in complete sentences, no cough, no nasal flaring, not tachypneic and no use of accessory muscles Auscultation: clear to auscultation bilaterally, no rales, no rhonchi and no wheezes Cardio Jugular venous pressure: no JVD Rate: regular rate Rhythm: regular rhythm GI Inspection: normal to inspection, no edema and non-distended Palpation: soft, no masses, nontender and No ascites Auscultation: normal bowel sounds Skin General skin exam: no rashes or lesions noted Trauma: no lacerations or abrasions Neuro General: patient alert, patient oriented x3, oriented, gait normal, moves all extremities, no focal motor deficits and CN's II-XI intact bilaterally Cognition: normal cognition Speech: speech normal Gait: normal gait Motor: muscle tone normal throughout Extrem General: normal to inspection, full ROM and no clubbing, cyanosis or edema Other: Mild changes in the hands noted from osteoarthritis Psych Appearance: grossly normal and well kempt Mental Status: mental status grossly normal Speech and Movement: speech and movement normal Affect: normal affect Results Labs Result diagrams: 01/26/21 12:30 01/26/21 12:30 Labs: Laboratory Results - last 24 hr 01/26/21 01/26/21 01/26/21 12:30 12:30 12:30 WBC 8.10 RBC 4.93 Hgb 14.4 Hct 44.0 MCV 89.2 MCH 29.2 MCHC 32.7 RDW 15.6 H Plt Count 104 L MPV 12.3 H Immature Gran % 0.9 Neutrophils % 74.6 Lymphocytes % 12.1 Monocytes % 12.2 Eosinophils % 0.1 Basophils % 0.1 Nucleated RBC % 0 Absolute Neutrophils 6.04 Absolute Lymphocytes 0.98 L Absolute Monocytes 0.99 H Absolute Eosinophils 0.01 Absolute Basophils 0.01 PT 18.5 H INR 1.9 H APTT 25.6 Sodium 141 Potassium 4.3 Chloride 106 Carbon Dioxide 27.5 Anion Gap 7.5 BUN 27 H Creatinine 1.0 Estimated GFR/1.73 m2 >= 60.00 Glucose 128 H Calcium 8.8 Magnesium 1.9 Total Bilirubin 0.8 AST 31 ALT 38 Alkaline Phosphatase 95 Troponin I < 50 Total Protein 6.7 Albumin 3.7 COVID-19 Source SARS-CoV-2 (PCR) 01/26/21 12:45 WBC RBC Hgb Hct MCV MCH MCHC RDW Plt Count MPV Immature Gran % Neutrophils % Lymphocytes % Monocytes % Eosinophils % Basophils % Nucleated RBC % Absolute Neutrophils Absolute Lymphocytes Absolute Monocytes Absolute Eosinophils Absolute Basophils PT INR APTT Sodium Potassium Chloride Carbon Dioxide Anion Gap BUN Creatinine Estimated GFR/1.73 m2 Glucose Calcium Magnesium Total Bilirubin AST ALT Alkaline Phosphatase Troponin I Total Protein Albumin COVID-19 Source Nasal/Nares SARS-CoV-2 (PCR) Negative Last Vital Signs Temp 36.3 C L 01/26/21 08:02 Pulse 73 01/26/21 13:46 Resp 25 H 01/26/21 13:46 BP 84/45 L 01/26/21 13:46 Pulse Ox 97 01/26/21 13:46 PAWSS Have you Been Recently Intoxicated or Drunk Within the Last 30 days?: No Have you Ever Experienced Previous Episodes of Alcohol Withdrawal?: No Have you ever Experienced Withdrawal Seizures?: No Have you ever Experienced Delirium Tremens(DT)s?: No Have you ever undergone Alcohol Rehabilitation Treatment (i.e, inpt ot outpatient treatment programs)?: No Have you ever Experienced Blackouts?: No Have you ever Combined Alcohol with other Downers within the last 90 days?: No Have you ever Combined Alcohol with any other Substance of Abuse during the last 90 days?: No Positive Blood Alcohol level on Presentation? [PCS.BAL]: No Evidence of Increased Autonomic Activity (i.e. HR>120, tremor, sweating, agitation, nausea)?: No Result: 0
--- NOTE | 2021-01-26 14:15 | RT.EKG_ITS ---
APPROVED REPORT Exam: Resting ECG Reason for Exam: hypotension/fall/hx of VA Patient Location: I HR:80 bpm ECG Measurements Heart Rate 80 AXIS AK 249 P 246 QRSd 84 QRS 66 QT 373 T 51 QTc 431 Conclusion Sinus or ectopic atrial rhythm...P axis (-45,135) Atrial premature complexes...SV complexes w/ short R-R intvls Prolonged AK interval...AK >220, V-rate 50- 90
--- NOTE | 2021-01-26 16:07 | IN_ITS ---
Date of service: 01/26/21 Time of Service: 15:40 PT Notes Visit Reasons: Left Side Multiple Rib Fractures, Fall Inpatient Physical Therapy Evaluation Date: 01/26/21 Referring Doctor: Jenn Castle PT Orders: PT CONSULT: Evaluate and Treat Precautions: Standard Patient Profile/Admitting Diagnosis: Orders received for this 80 year old male who normally lives very actively and independent in the community. He was walking into his driveway this morning and ended up slipping on the ice and fell. It all happended very fast but he ended up striking his head and his left side. He was taken by ambulance to the hospital. CT scan of head was negative but he does have a few fractured ribs on the left side. PMHX: PFSH All Active Problems (Updated 01/26/21 @ 14:10 by Jenn Castle DO) Anticoagulated on Coumadin (Acute) NSTEMI (non-ST elevated myocardial infarction) (Acute) Stenosis of left carotid artery (Acute) Hyperlipidemia (Acute) ASCVD (arteriosclerotic cardiovascular disease) (Acute) 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 Social History/Home Situation: Lives at home at [facility]. Son lives essentially next door he says. Equipment Owned/DME: Nothing Subjective: Patient states he is doing okay as long as he doesn't try to move or get up, then he feels a very strong and sudden pain Objective: Sitting in recliner comfortably upon entering the room Mental Status: Well oriented and alert to person, place, and time. Pain: Only with movement, coughing, or heavy breath ROM: Right Upper Extremity: WNL Left Upper Extremity: up to 130 degrees of shoulder flexion before pain in left side chest. Elbow, wrist WNL Right Lower Extremity: WFL Left Lower Extremity: WFL Strength: Right Upper Extremity: Globally 5/5 Left Upper Extremity: 4+/5 with shoulder flexion due to pain, biceps 5/5, triceps 5/5, wrist strengh 5/5, instructional support services director 5/5 Right Lower Extremity: Globally 5/5 Left Lower Extremity: Globally 5/5 Sit-stand: Patient requires min Assist with pull through on right upper extremity due to pain on the left Stand-sit: Min assist due to pain on left Gait: Assistance-- CGA Distance-- 5 feet in room Device-- Nothing needed for balance Balance: Static Sitting: Normal Dynamic Sitting: Normal Static Standing: Good Dynamic Standing: Fair Special Tests: Mobility Limitations Standardized Measure [facility] AM-PAC 6 clicks Basic Mobility Inpatient Short Form: Raw Score: 18 Standardized Score: 43.63 CMS Score: 46.58% Informed Consent/Education: Patient instructed in purpose of PT consult and plan of care. ASSESSMENT: Patient is a 80 year old male with hx of good physical health Admitted with mechanical fall and rib fractures on the left Patient presents with the following impairment level findings: Limited ambula tion tolerance, decreased transfers ability due to pain, slight impairment in ROM on left upper extremity Pt will benefit from skilled therapy intervention in order to remedy their functional limitations and restore patient to a more appropriate and stable functional level. Impairments are contributing to the following functional limitations: AMPAC score 18, 46.58% Patient is assessed as a Moderate complexity Initial evaluation 53225 based on the following: History: see above Examination: see above Presentation: Evolving Decision Making: Moderate based on AMPAC of 46.58% Goals: Goals X1 week 1. Supine-Sit Independent 2. Sit-Supine Independent 3. Sit-Stand Independent 4. Stand-Sit Independent 5. Bed-Chair Independent 6. Gait Up to 500 feet Independent 7: Stairs 3 steps Independently 8: Independent in Home program Plan of Care/Treatment Plan: 1-2x/day, 7 days/week x 1 week. Plan of care has been reviewed with the DIPLOMATIC INTERPRETER/TRANSLATOR providing the service under Physical Therapy direction. Initiate Physical Therapy intervention for strengthening, bed mobility, transfers, gait, stairs, balance training, use of assistive device. DISCHARGE RECOMMENDATIONS: ( X ) Home with no services ( ) Home with services [specify] ( ) Home with outpatient PT ( ) SNF for continued rehabilitation ( ) Software Performance Engineer Care ( ) SNF versus LTC based on ability to participate and progress TREATMENT CODE/TIME: Moderate complexity Initial evaluation 00607 20 minutes 340pm Jose Antonio Patiño DPT
[2021-01-26 16:20] LABS: Troponin I < 50 ng/L (<or=60)
[2021-01-26] MEDS: Acetaminophen 500 MG TAB 1000 MG PO ×2 (16:33→21:00)
[2021-01-27 02:25] VITALS: BP 115/72; PULSE 91; RESP 17; TEMP 36.1; O2SAT 95
[2021-01-27 04:01] VITALS: BP 119/76; PULSE 91; RESP 18; TEMP 36.6; O2SAT 96
[2021-01-27] MEDS: Acetaminophen 500 MG TAB 1000 MG PO (05:40)
--- NOTE | 2021-01-27 06:24 | NUR.NOTE ---
Nursing Note: telemetry alarms for irregular HR, upon inspection and review of current and previous shifts, sometimes there are 2-3 P waves without QRS. Previous shift labeled rhythm afib. At times, looks like 2nd degree type 1 but not definitively. Not definitively afib either. EKG stated sinus or ectopic atrial rhythm and noted prolonged MT and PACs. As this rhythm appears to have been captured on previous EKG and has been present all along on telemetry, this RN will report to day shift to determine if further workup is required.
--- NOTE | 2021-01-27 07:00 | DI.RAD_ITS ---
Exam(s) XR CHEST 2V PA LATERAL EXAM: XR CHEST 2V PA LATERAL CLINICAL HISTORY: rib fx/coumadin. TECHNIQUE: 2D digital imaging was performed. COMPARISON: CR XR RIBS LT W PA LAT CHEST from 01/26/2021 FINDINGS: CT scan yesterday revealed nondisplaced fractures of the left 5th through 9th ribs, inclusive. Heart size is normal. The mediastinum is not widened. Lungs are clear. No infiltrates nor pleural effusions. No evidence of pneumothorax. No large pleural effusion. IMPRESSION: No acute pulmonary findings. This patient has multiple nondisplaced left rib fractures, as seen on yesterday's CT scan. DATA REPOSITORY: RADIATION DOSE DELIVERED:
[2021-01-27 07:17] LABS: Abs Immature Grans 0.04 10^3/uL (0.0-0.06); Absolute Basophil Count 0.01 10^3/uL (0.0-0.2); Absolute Eosinophil Count 0.03 10^3/uL (0.0-0.7); Absolute Lymphocyte Count 1.47 10^3/uL (1.2-3.4); Absolute Monocyte Count 1.24 10^3/uL (0.1-0.8); Basophils % 0.1; Eosinophils % 0.4; HCT 40.3 % (40.0-50.0); HGB 13.2 g/dL (13.5-17.5); Immature Grans % 0.5; Lymphocytes % 19.4; MCH 29.1 pg (27.0-33.0); MCHC 32.8 % (32.0-36.0); MPV 12.1 fL (8.0-11.0); Monocytes % 16.3; Neutrophils % 63.3; Nucleated RBC 0 %; RBC 4.53 10^6/uL (4.36-5.78); RDW 15.9 % (11.8-14.1); WBC 7.59 10^3/uL (4.4-10.8)
[2021-01-27 07:35] VITALS: BP 138/74; PULSE 85; RESP 16; TEMP 36.2; O2SAT 96
[2021-01-27 07:35] LABS: Diff Comment Diff Reviewed; Platelet Count 92 10^3/uL (130-400)
[2021-01-27 07:36] LABS: Burr Cells (echinocyte) 2+
[2021-01-27] MEDS: Lidocaine 5% Patch 1 PATCH TP (07:43)
[2021-01-27] MEDS: Allopurinol 300 MG TAB PO (07:44)
[2021-01-27] MEDS: Metoprolol CR 50 MG TABCR 75 MG PO (07:44)
[2021-01-27] MEDS: Bacitracin 1 PACKET TP (07:44)
[2021-01-27] MEDS: Bisacodyl 5 MG TABEC PO (07:44)
[2021-01-27] MEDS: Lisinopril 10 MG TAB PO (07:58)
--- NOTE | 2021-01-27 08:11 | W.ANESNERVE ---
Nerve Block Single Injection Procedure Date and Time Date Performed: 01/26/21 Procedure Start: 13:38 Location Where Procedure Performed Procedure Location: Emergency Department Reason Performed: Acute Pain Management Pain Diagnosis: Rib Pain Requesting Provider: Jenn Castle Timeout Performed Timeout Performed: Yes Monitoring Used ECG, Blood Pressure and SpO2 Sterility Sterility: Hand Hygiene, Surgical Cap, Surgical Mask, Sterile Gloves, Sterile Drape/Sheet and Eye Protection Sedation Given During Procedure Sedation Given (Indicate Dose Given): No Sedation given Patient Mental Status Patient Mental Status: Awake Nerve Block 1st Nerve Block: Laterality: Left Block Type: Erector Spinae (Upper) Needle / Catheter Used: 100mm SonoPlex II Local Anesthetic Bolus (Indicate Dose Given): Lidocaine used for local infiltration of skin, Injected in 3-5ml increments after negative blood aspiration, Bupivacaine 0.25% Dose:: 30 ml and Exparel Dose:: 10 ml Additives (Indicate Dose Given): None Ultrasound: Sterile probe cover and gel used Ultrasound Image Saved?: Yes Nerve Stimulator: Not Used Paresthesia: None Procedure Tolerated: No Complications and Patient tolerated well Procedure Outcome: Successful Procedure Comment: Pt. able to move and much more comfortable after block, except for continued muscle spasms. Performed By: Juli Guillory Supervised By: Wilberto Daniels
[2021-01-27 08:15] VITALS: PULSE 88
--- NOTE | 2021-01-27 08:49 | PDOC.CMIN ---
- If Service Date Differs Date of service: 01/27/21 Time of Service: 08:49 Care Management Initial Assess REASON FOR HOSPITALIZATION:: Fall with rib fractures PAST MEDICAL HISTORY/PAST SURGICAL HISTORY:: All Active Problems (Updated 01/26/21 @ 14:10 by Jenn Castle DO). Anticoagulated on Coumadin (Acute). NSTEMI (non-ST elevated myocardial infarction) (Acute). Stenosis of left carotid artery (Acute). Hyperlipidemia (Acute). ASCVD (arteriosclerotic cardiovascular disease) (Acute). Atherosclerosis of leg with intermittent claudication (Acute). Colon adenoma (Acute). Gout (Acute). URI (upper respiratory infection) (Acute). Fall (Acute). Hand laceration (Acute). Contusion (Acute). Abrasion (Acute). Multiple fractures of ribs of left side (Acute). Tendonitis of left rotator cuff (Acute). Injected: 06/24/2019. Chronic atrial fibrillation (Acute). Hypertension (Chronic). Speech abnormality (Acute). Surgical History . History of heart artery stent (~08/2015). RCA stented. PREVIOUS FUNCTIONAL STATUS/SOCIAL/FAMILY SUPPORTS:: Talon lives in [place] CURRENT FUNCTIONAL STATUS:: Talon was discharged before was able to meet with him. ADVANCE DIRECTIVES:: None on file Has patient been provided with info about the portal/API?: Yes Did the patient sign up for the portal?: No CODE STATUS:: Full Code INSURANCE COVERAGE / FINANCIAL ISSUES:: Medicare. [facility] Insurance PRIMARY CARE PHYSICIAN:: Siria Garcia POTENTIAL DISCHARGE NEEDS:: follow up with PCP and plan of care PATIENT/FAMILY EDUCATION NEEDS:: Review of discharge instructions, medications, limitations, activity, follow up plan and discuss Ask Me Three TRANSPORTATION:: via private vehicle with friends/family PLAN:: Talon will be discharged home with no new services. He will follow up with his PCP and plan of care and transport with family.
--- NOTE | 2021-01-27 10:03 | W.PM.DSUDISC ---
Discharge Plan Disposition Patient Disposition: HOME Condition: Stable Discharge Details Reason For Visit: Left Side Multiple Rib Fractures, Fall Admit Date/Time: 01/26/21 12:35 Admit Provider: Jenn Castle Attending Provider: Jenn Castle Primary Care Provider: Siria Garcia Home Meds and New Rx's Prescriptions: New fluticasone propionate [24 Hour Allergy Relief] 50 mcg/actuation spray,suspension 2 spray intranasal DAILY 7 Days Qty: 16 RF: 0 lidocaine 5 % adhesive patch,medicated 1 patch topical DAILY Qty: 30 RF: 0 tramadol 50 mg tablet 50 mg PO Q6H PRNQty: 14 RF: 0 gabapentin 100 mg capsule 100 mg PO QHS Qty: 90 RF: 3 metaxalone [Skelaxin] 800 mg tablet 800 mg PO TID PRNQty: 60 RF: 3 celecoxib [Celebrex] 100 mg capsule 100 mg PO BID Qty: 60 RF: 6 Continued aspirin 81 mg tablet,delayed release (DR/EC) 81 mg PO DAILY RF: 0 metoprolol succinate 50 MG tablet extended release 24 hr 75 mg PO DAILY Qty: 45 RF: 11 lisinopril 10 MG tablet 10 mg PO DAILY Qty: 30 RF: 11 atorvastatin 80 MG tablet 80 mg PO HS RF: 0 allopurinol 300 mg tablet 300 mg PO DAILY RF: 0 nitroglycerin 0.4 MG tablet, sublingual 0.4 mg PO PRN PRNRF: 0 Discontinued warfarin 5 MG tablet 5 mg PO DIRECTED RF: 0 naproxen sodium [Aleve] 220 MG tablet 1 tab PO PRN PRNRF: 0 Discharge Instructions Instructions: Sinusitis (ED), Head Injury (ED), Rib Contusion (ED) Additional Instructions: -wash incision w/ soap water daily. apply antibacterial ointment. keep covered. ice -ice to ribs - incentive spirometry 10x/hour while awake -we do want you up walking around. No lifting over 5#'s x 6wks -no driving for 2 wks. Pain Management Protocol -tylenol 1000mg every 8 hours. Tylenol is an anti-inflammatory. It is important to take this medication to keep the swelling down. Swelling is what causes pain. -Use ice. This also helps to keep swelling down -gabapentin 100mg every 8hrs. This helps to decrease the nerves response. -celebrex 100mg twice a day. Do not take aspirin while taking this medication. -lidocaine patches. one patch change every 24 hrs -Metamucil twice a day for bowels/constipation. Do NOT strain to move your bowels! This is like lifting 50#'s. -Skelaxin muscle relaxant OR Tramadol (narcotic) you can take as needed for pain >7. All these medications work in concert together to produce a symphony of pain control. You need to take them as a TOGETHER in order to control the pain, NOT just pick and choose which one you want to take. There is not one thing that completely controls pain. AND there are multiple factors that produce the sensation of pain- so no one thing is going to control it. So in order to have a symphony of pain control- you need to use ALL of them together. F/u Chirag Castle 01/30 @2pm Will need to go to radiology at the hospital for chest x-ray prior to the appointment Stand Alone Forms: Nursing Discharge Form Referrals: Siria Garcia [Primary Care Provider] - 02/01/21 2:25 pm Activity:: see above Equipment/Supplies:: No Equipment Needed Diet:: As Tolerated Discharge Orders Discharge Orders: Discharge Order (Routine); Ordered 01/27/21 Ordered By: Jenn Castle DS: Diagnosis Discharge Diagnosis (1) Fall: Status: Acute (2) Abrasion: Status: Acute (3) Multiple fractures of ribs of left side: Status: Acute (4) Chronic atrial fibrillation: Status: Acute (5) Hypertension: Status: Chronic (6) Stenosis of left carotid artery: Status: Acute (7) Hyperlipidemia: Status: Acute (8) ASCVD (arteriosclerotic cardiovascular disease): Status: Acute (9) Atherosclerosis of leg with intermittent claudication: Status: Acute (10) Colon adenoma: Status: Acute (11) Gout: Status: Acute (12) Anticoagulated on Coumadin: Status: Acute
--- NOTE | 2021-01-27 12:26 | PDOC.CMDIS ---
- If Service Date Differs Date of service: 01/27/21 Time of Service: 12:26 LACE Index Scoring Tool - Questions: Length of Stay (in days): 1 Acuity (Admit via E.D.?): Yes Comorbidities: Previous M.I. E.D. Visits: 3 - Answers: Total Score: 8 Risk of Readmission: Low Risk Care Management Discharge Reason for Hospitalization: Fall with rib fractures Discharge Plan: Talon will be discharged home with no new services. He will follow up with his PCP and plan of care and transport with family. Patient/Family Education Needs: Review of discharge instructions, medications, limitations, activity, follow up plan and discuss Ask Me Three
--- NOTE | 2021-01-30 10:34 | PT.INDS ---
Date of service: 01/30/21 PT Notes Visit Reasons: Left Side Multiple Rib Fractures, Fall Physical Therapy Inpatient Discharge Summary Date: 01/30/21 Dates of service: 01/26/2021 only This is a clinical summary of care provided for the duration of dates listed above. No charge was made in the completion of this documentation. Referring Doctor: Jenn Castle PT Orders: PT CONSULT: Evaluate and Treat Precautions: Standard Patient Profile/Admitting Diagnosis: Orders received for this 80 year old male who normally lives very actively and independent in the community. He was walking into his driveway this morning and ended up slipping on the ice and fell. It all happended very fast but he ended up striking his head and his left side. He was taken by ambulance to the hospital. CT scan of head was negative but he does have a few fractured ribs on the left side. PMHX: PFSH All Active Problems (Updated 01/26/21 @ 14:10 by Jenn Castle, ) Anticoagulated on Coumadin (Acute) NSTEMI (non-ST elevated myocardial infarction) (Acute) Stenosis of left carotid artery (Acute) Hyperlipidemia (Acute) ASCVD (arteriosclerotic cardiovascular disease) (Acute) 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 Social History/Home Situation: Lives at home at [facility]. Son lives essentially next door he says. Equipment Owned/DME: Nothing Subjective: NT. See most recent DRUG SAFETY COORDINATOR notes. Objective: NT. See most recent DRUG SAFETY COORDINATOR notes. Mental Status: NT. See most recent DRUG SAFETY COORDINATOR notes. Pain: NT. See most recent DRUG SAFETY COORDINATOR notes. ROM: Right Upper Extremity: WNL Left Upper Extremity: up to 130 degrees of shoulder flexion before pain in left side chest. Elbow, wrist WNL Right Lower Extremity: WFL Left Lower Extremity: WFL Strength: Right Upper Extremity: Globally 5/5 Left Upper Extremity: 4+/5 with shoulder flexion due to pain, biceps 5/5, triceps 5/5, wrist strengh 5/5, learning technologist 5/5 Right Lower Extremity: Globally 5/5 Left Lower Extremity: Globally 5/5 Transfers: Sit-stand: Patient requires min Assist with pull through on right upper extremity due to pain on the left Stand-sit: Min assist due to pain on left Gait: Assistance-- CGA Distance-- 5 feet in room Device-- Nothing needed for balance Balance: Static Sitting: Normal Dynamic Sitting: Normal Static Standing: Good Dynamic Standing: Fair ASSESSMENT: Patient was only seen for physical evaluation on 01/26/2021 only with discharge on 01/27/2021 to home with no services. Goals: Goals X1 week 1. Supine-Sit Independent NOT MET 2. Sit-Supine Independent NOT MET 3. Sit-Stand Independent NOT MET 4. Stand-Sit Independent NOT MET 5. Bed-Chair Independent NOT MET 6. Gait Up to 500 feet Independent NOT MET 7: Stairs 3 steps Independently NOT MET 8: Independent in Home program NOT MET DISCHARGE RECOMMENDATIONS: ( X ) Home with no services ( ) Home with services [specify] ( ) Home with outpatient PT ( ) SNF for continued rehabilitation ( ) [facility] ( ) SNF versus LTC based on ability to participate and progress TREATMENT CODE/TIME: SAURABH Thank you for the opportunity to participate in the care of this patient. Sarah Ferrer PT, DPT, CLT [facility] [place], [place]
== END 2021-01-27 11:03 | disposition home or self-care (01) | DRG 184 ==
LOC: ER 12:33 → MS 13:54
PROVIDERS: Admitting Provider Surgery; Emergency Provider Registered Nurse Emergency; PCP Family Medicine; Visit Provider Surgery
DX: S22.42XA Multiple fractures of ribs, left side, initial encounter for closed fracture (principal); I48.20 Chronic atrial fibrillation, unspecified; Z79.01 Long term (current) use of anticoagulants; I10 Essential (primary) hypertension; E78.5 Hyperlipidemia, unspecified; I65.22 Occlusion and stenosis of left carotid artery; I25.10 Atherosclerotic heart disease of native coronary artery without angina pectoris; I70.219 Atherosclerosis of native arteries of extremities with intermittent claudication, unspecified extremity; M10.9 Gout, unspecified; Z86.73 Personal history of transient ischemic attack (TIA), and cerebral infarction without residual deficits; I25.2 Old myocardial infarction; Z95.5 Presence of coronary angioplasty implant and graft; Z87.891 Personal history of nicotine dependence; Z20.822 Contact with and (suspected) exposure to COVID-19; S00.01XA Abrasion of scalp, initial encounter; W00.0XXA Fall on same level due to ice and snow, initial encounter
CPT/HCPCS: 36415; 71250; 76942; 80053; 87635; 97162; 99222; 99285; 70450; 71046; 71100; 83735; 84484; 85025; 85610; 85730; J3490

== ENCOUNTER → 2021-01-27 11:06 | Outpatient (BNVA) | payer MEDICARE, OTHER, SELFPAY | PROVIDERS: PCP Family Medicine; Referring Provider Family Medicine; Visit Provider Internal Medicine Cardiovascular Disease | DX: I48.91 Unspecified atrial fibrillation (principal); Z95.5 Presence of coronary angioplasty implant and graft; I70.219 Atherosclerosis of native arteries of extremities with intermittent claudication, unspecified extremity; I65.22 Occlusion and stenosis of left carotid artery; S22.42XA Multiple fractures of ribs, left side, initial encounter for closed fracture; W19.XXXA Unspecified fall, initial encounter | CPT/HCPCS: 99214 ==

== ENCOUNTER 2021-01-30 00:57 | Outpatient (CLI) | payer MEDICARE, OTHER, SELFPAY ==
--- NOTE | 2021-01-30 08:15 | DI.RAD_ITS ---
Exam(s) XR CHEST 2V PA LATERAL EXAM: XR CHEST 2V PA LATERAL CLINICAL HISTORY: fall/lt sided rib fx/+coumadin,lt ,a fib,w19.xxa,s22.42xa,i48.91 TECHNIQUE: 2D digital imaging was performed. COMPARISON: CR XR CHEST 2V PA LATERAL from 01/27/2021 FINDINGS: MEDIASTINUM: Normal. HEART: Normal. PULMONARY VASCULATURE: Normal. LUNGS: Mild basilar atelectasis.. Azygos lobe, anatomic variant. PLEURAL SPACE: No pneumothorax. Small left pleural effusion. BONE:Nondisplaced left rib fractures. IMPRESSION: Small left pleural effusion. No pneumothorax. Nondisplaced left rib fractures. DATA REPOSITORY: RADIATION DOSE DELIVERED:
== END 2021-01-30 01:17 ==
PROVIDERS: PCP Family Medicine; Visit Provider Surgery
DX: S22.42XA Multiple fractures of ribs, left side, initial encounter for closed fracture; W19.XXXA Unspecified fall, initial encounter; Z95.5 Presence of coronary angioplasty implant and graft; J90 Pleural effusion, not elsewhere classified
CPT/HCPCS: 99213; 71046

== ENCOUNTER 2021-02-13 00:43 | Outpatient (CLI) | payer MEDICARE, SELFPAY ==
--- NOTE | 2021-02-13 07:15 | DI.RAD_ITS ---
Exam(s) XR CHEST 2V PA LATERAL EXAM: XR CHEST 2V PA LATERAL CLINICAL HISTORY: f/u rib fx anticoags,a fib,s/p fall,[id number] TECHNIQUE: 2D digital imaging was performed. COMPARISON: CR XR CHEST 2V PA LATERAL from 01/30/2021 FINDINGS: MEDIASTINUM: Normal. HEART: Normal. PULMONARY VASCULATURE: Normal. LUNGS: Clear. No pneumothorax. PLEURAL SPACE: No pleural effusion or pneumothorax. BONE:Multiple left rib fractures, unchanged from prior.. Prominent degenerative changes thoracic sp ine. IMPRESSION: Left rib fractures. No new abnormality. DATA REPOSITORY: RADIATION DOSE DELIVERED:
== END 2021-02-13 01:03 ==
LOC: DI 00:43
PROVIDERS: PCP Family Medicine; Visit Provider Surgery
DX: I48.91 Unspecified atrial fibrillation (principal); S22.42XD Multiple fractures of ribs, left side, subsequent encounter for fracture with routine healing; W19.XXXD Unspecified fall, subsequent encounter; Z95.5 Presence of coronary angioplasty implant and graft
CPT/HCPCS: 99213; 71046

== ENCOUNTER 2021-03-13 00:25 | Outpatient (CLI) | payer MEDICARE, OTHER, SELFPAY ==
--- NOTE | 2021-03-13 06:45 | DI.RAD_ITS ---
Exam(s) XR CHEST 2V PA LATERAL EXAM: XR CHEST 2V PA LATERAL CLINICAL HISTORY: F/U rib fracture,s/p fall,w19.xxxa,a fib TECHNIQUE: 2D digital imaging was performed. COMPARISON: CR XR CHEST 2V PA LATERAL from 02/13/2021 FINDINGS: MEDIASTINUM: Normal. HEART: Normal. PULMONARY VASCULATURE: Normal. LUNGS: Clear. Azygos lobe, normal variant. PLEURAL SPACE: No pleural effusion or pneumothorax. BONE:Multiple left-sided rib fractures are again noted. Osteophytes are noted in the spine. No new findings. IMPRESSION: Left-sided rib fractures. No acute abnormality. DATA REPOSITORY: RADIATION DOSE DELIVERED:
== END 2021-03-13 00:45 ==
PROVIDERS: PCP Family Medicine; Visit Provider Surgery
DX: I48.91 Unspecified atrial fibrillation (principal); Z79.01 Long term (current) use of anticoagulants; S22.42XD Multiple fractures of ribs, left side, subsequent encounter for fracture with routine healing; W19.XXXD Unspecified fall, subsequent encounter; I10 Essential (primary) hypertension
CPT/HCPCS: 99212; 71046

== ENCOUNTER 2021-11-17 15:45 | Outpatient (REF) | payer MEDICARE, OTHER, SELFPAY ==
[2021-11-17 17:13] LABS: ALT 42 U/L (16-63); AST 38 U/L (15-37); Albumin 4.1 g/dL (3.4-5.0); Alkaline Phosphatase 105 U/L (46-116); Anion Gap 7.8 mmol/L (3-11); BUN 31 mg/dL (7-18); Bilirubin, Total 0.6 mg/dL (0.2-1.0); CO2 28.2 mmol/L (21.0-32.0); CREATININE 1.1 mg/dL (0.70-1.30); Calcium 9.2 mg/dL (8.5-10.1); Calculated LDL 79 mg/dL (<100); Chloride 108 mmol/L (98-107); Cholesterol 139 mg/dL (<200); Estimated GFR 67.02 (mL/min/1.73m2); Glucose 102 mg/dL (74-106); HDL Cholesterol 51 mg/dL (40-60); Potassium 4.8 mmol/L (3.5-5.1); Sodium 144 mmol/L (136-145); Triglyceride 48 mg/dL (<150)
== END 2021-11-17 15:46 | disposition home or self-care (01) ==
LOC: NCHCN 15:45
PROVIDERS: PCP Family Medicine; Visit Provider Family Medicine
DX: E78.5 Hyperlipidemia, unspecified (principal); I10 Essential (primary) hypertension; Z00.00 Encounter for general adult medical examination without abnormal findings
CPT/HCPCS: 80053; 80061

== ENCOUNTER → 2022-01-23 09:54 | Outpatient (BNVA) | payer MEDICARE, OTHER, SELFPAY | PROVIDERS: PCP Family Medicine; Visit Provider Internal Medicine Cardiovascular Disease | DX: I25.10 Atherosclerotic heart disease of native coronary artery without angina pectoris (principal); I48.20 Chronic atrial fibrillation, unspecified; I10 Essential (primary) hypertension; Z95.5 Presence of coronary angioplasty implant and graft | CPT/HCPCS: 99214 ==

== ENCOUNTER 2022-04-11 01:29 | Outpatient (CLI) | payer MEDICARE, SELFPAY ==
--- NOTE | 2022-04-11 | DI.RAD_ITS ---
Exam(s) XR HIP RT COMPLETE AP PELVIS EXAM: XR HIP RT COMPLETE AP PELVIS CLINICAL HISTORY: RT INGUINAL PAIN, R10.31. TECHNIQUE: 2D digital imaging was performed of the right hip. Three images were obtained. AP pelvis and lateral right hip views were obtained. FINDINGS: BONES: No acute fracture is present. No bony destructive lesion is seen. JOINTS: No dislocation present. Degenerative changes are seen in the lower lumbar spine. There is mo derate narrowing of the hips bilaterally. Mild acetabular spurring is present. SOFT TISSUE: Atherosclerosis is present. IMPRESSION: Degenerative changes of the hips. DATA REPOSITORY: RADIATION DOSE DELIVERED:
== END 2022-04-11 01:49 ==
PROVIDERS: PCP Family Medicine; Visit Provider Family Medicine
DX: R10.31 Right lower quadrant pain (principal); M25.551 Pain in right hip; M16.0 Bilateral primary osteoarthritis of hip
CPT/HCPCS: 73502

== ENCOUNTER 2022-11-16 15:39 | Outpatient (REF) | payer MEDICARE, SELFPAY ==
[2022-11-16 15:32] LABS: HCT 44.6 % (40.0-50.0); HGB 14.9 g/dL (13.5-17.5); MCHC 33.4 % (32.0-36.0); MCV 87 fL (80-95); Platelet Count 96 10^3/uL (130-400); RBC 5.13 10^6/uL (4.36-5.78); RDW 16.6 % (11.8-14.1); RDW-SD 52.7 fL; WBC 3.54 10^3/uL (4.4-10.8)
[2022-11-16 16:19] LABS: ALT 39 U/L (16-63); AST 39 U/L (15-37); Alkaline Phosphatase 99 U/L (46-116); Anion Gap 5.8 mmol/L (3-11); BUN 18 mg/dL (7-18); Bilirubin, Total 0.6 mg/dL (0.2-1.0); CO2 28.2 mmol/L (21.0-32.0); CREATININE 1.2 mg/dL (0.70-1.30); Calcium 9.6 mg/dL (8.5-10.1); Calculated LDL 68 mg/dL (<100); Chloride 108 mmol/L (98-107); Cholesterol 130 mg/dL (<200); Glucose 98 mg/dL (74-106); HDL Cholesterol 51 mg/dL (40-60); Potassium 4.3 mmol/L (3.5-5.1); Sodium 142 mmol/L (136-145); Total Protein 7.3 g/dL (6.4-8.2); Triglyceride 55 mg/dL (<150)
== END 2022-11-16 15:40 | disposition home or self-care (01) ==
LOC: NCHCN 15:39
PROVIDERS: PCP Family Medicine; Visit Provider Family Medicine
DX: I10 Essential (primary) hypertension (principal); I25.2 Old myocardial infarction; R42 Dizziness and giddiness
CPT/HCPCS: 80053; 80061; 85027

== ENCOUNTER 2022-11-20 08:58 | Outpatient (CLI) | payer MEDICARE, SELFPAY | END 2022-11-20 08:59 | disposition home or self-care (01) | PROVIDERS: PCP Family Medicine; Visit Provider Family Medicine | DX: R42 Dizziness and giddiness (principal) | CPT/HCPCS: 93270 ==

== ENCOUNTER 2022-12-06 07:13 | Outpatient (CLI) | payer MEDICARE, SELFPAY ==
--- NOTE | 2022-12-06 15:26 | W.CARDEVENT ---
Date of service: 12/06/22 Time of Service: 15:26 Cardiac Event Recorder Referring Provider:: Siria Garcia Indications:: Palpitations Cardiac Event Note: This is a cardiac event monitor ordered for palpitations. Patient was monitored for 8 days and 5 hours Predominant rhythm was sinus. Average heart rate overall was 93. There was no bradycardia, maximum heart rate was 131 Atrial fibrillation was present 3% of the time. Rapid ventricular response was noted, 160 to 190 bpm There was one 4.7-second pause which occurred during sleep at 4:34 AM It did not appear that there are any patient symptoms
== END 2022-12-06 07:14 | disposition home or self-care (01) ==
LOC: CARDOPNVT 07:13
PROVIDERS: PCP Family Medicine; Visit Provider Internal Medicine Cardiovascular Disease
DX: R00.2 Palpitations (principal); I48.91 Unspecified atrial fibrillation
CPT/HCPCS: 93272

== ENCOUNTER 2023-01-18 12:49 | Outpatient (CLI) | payer MEDICARE, SELFPAY ==
--- NOTE | 2023-01-18 12:45 | RT.EKG_ITS ---
APPROVED REPORT Exam: Resting ECG Reason for Exam: followup Patient Location: O HR:92 bpm ECG Measurements Heart Rate 92 AXIS MA 203 P 52 QRSd 91 QRS 66 QT 361 T 44 QTc 447 Conclusion Sinus rhythm...normal P axis, V-rate 50- 99 Borderline low voltage, extremity leads...all extremity leads <0.6mV
== END 2023-01-18 12:50 | disposition home or self-care (01) ==
LOC: DI.CARD 12:50
PROVIDERS: PCP Family Medicine; Visit Provider Internal Medicine Cardiovascular Disease
DX: I48.91 Unspecified atrial fibrillation (principal)
CPT/HCPCS: 93010

== ENCOUNTER → 2023-01-18 12:49 | Outpatient (BNVA) | payer MEDICARE, SELFPAY | PROVIDERS: PCP Family Medicine; Referring Provider Family Medicine; Visit Provider Internal Medicine Cardiovascular Disease | DX: I48.0 Paroxysmal atrial fibrillation (principal); Z79.01 Long term (current) use of anticoagulants; Z95.5 Presence of coronary angioplasty implant and graft | CPT/HCPCS: 93005; 99214 ==

== ENCOUNTER → 2024-01-17 13:27 | Outpatient (BNVA) | payer MEDICARE, SELFPAY | PROVIDERS: PCP Family Medicine; Referring Provider Family Medicine; Visit Provider Internal Medicine Cardiovascular Disease | DX: I48.0 Paroxysmal atrial fibrillation (principal); I25.10 Atherosclerotic heart disease of native coronary artery without angina pectoris | CPT/HCPCS: 99213 ==

== ENCOUNTER 2024-04-30 11:58 | Outpatient (CLI) | payer MEDICARE, SELFPAY ==
--- NOTE | 2024-04-30 09:55 | DI.RAD_ITS ---
Exam(s) XR CHEST 2V PA LATERAL EXAM: XR CHEST 2V PA LATERAL CLINICAL HISTORY: Cough, R05.9 TECHNIQUE: 2D digital imaging was performed. Two views. COMPARISON: CR XR CHEST 2V PA LATERAL from 03/13/2021 FINDINGS: HEART: Normal size. Aorta: Not dilated. PULMONARY VASCULATURE: Normal. MEDIASTINUM: Unremarkable. LUNGS: Clear. PLEURAL SPACE: No pleural effusion or pneumothorax. BONE:Prominent endplate osteophytes. No compression fractures. SOFT TISSUES: Unremarkable. IMPRESSION: No acute abnormality. DATA REPOSITORY: RADIATION DOSE DELIVERED:
== END 2024-04-30 12:18 ==
LOC: DI 11:59
PROVIDERS: PCP Family Medicine; Visit Provider Physician Assistant Medical
DX: R05.9 Cough, unspecified (principal)
CPT/HCPCS: 71046

== ENCOUNTER → 2025-01-15 13:13 | Outpatient (BNVA) | payer MEDICARE, SELFPAY | PROVIDERS: PCP Family Medicine; Referring Provider Family Medicine; Visit Provider Internal Medicine Cardiovascular Disease | DX: I48.0 Paroxysmal atrial fibrillation (principal); I25.10 Atherosclerotic heart disease of native coronary artery without angina pectoris; Z79.01 Long term (current) use of anticoagulants | CPT/HCPCS: 99214 ==